=== PATIENT | female | born 1955 | race Caucasian/White ===

== ENCOUNTER 2020-06-19 16:26 | Emergency (ER) | payer BC, MEDICARE ==
[2020-06-19] MEDS ORDERED: Sodium Chloride 0.9% 1,000 ML IV STA (17:12)
[2020-06-19] MEDS ORDERED: Sodium Chloride 0.9% 10 ML Syringe FLUSH PRN (17:12)
[2020-06-19] MEDS ORDERED: Prochlorperazine 10 MG/2 ML SDV IVPUSH ONE (17:13)
[2020-06-19] MEDS ORDERED: Ketorolac 30 MG/ML SDV IVPUSH ONE (17:13)
--- NOTE | 2020-06-19 17:16 | EDM.PDOC ---
ED HPI GENERAL MEDICAL PROBLEM - General Chief Complaint: Abdominal Pain Stated Complaint: STOMACH PAIN Time Seen by Provider: 06/19/20 17:07 Source of Information: Reports: Patient, Family, RN Notes Reviewed History Limitations: Reports: No Limitations - History of Present Illness INITIAL COMMENTS - FREE TEXT/NARRATIVE: 64-year-old female presents emergency department with a complaint of epigastric abdominal pain, she states it started 13 hours ago is constant in nature no shortness of breath no chest pain no diaphoresis, states she has had normal bowel movements denies any fevers does feel nauseated no vomiting no history of abdominal surgeries takes no medications Upper Abdomen Pain Score (Numeric/FACES): 5 - Related Data Allergies Allergy/AdvReac Type Severity Reaction Status Date / Time cefuroxime [From Ceftin] Allergy Hives Verified 06/19/20 16:59 amoxicillin [From Augmentin] AdvReac Vomiting Verified 06/19/20 16:59 clavulanic acid AdvReac Vomiting Verified 06/19/20 16:59 [From Augmentin] levofloxacin [From Levaquin] AdvReac Other Verified 06/19/20 16:59 prednisone AdvReac Headache Verified 06/19/20 17:00 Home Meds: Home Meds Promethazine [Phenergan] 25 mg PO Q6H PRN #10 tab 06/19/20 [Rx] Past Medical History Genitourinary History: Reports: Renal Calculus 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 Social & Family History - Tobacco Use Smoking Status *Q: Current Some Day Smoker Years of Tobacco use: 20 Packs/Tins Daily: 0 - Caffeine Use Caffeine Use: Reports: None - Recreational Drug Use Recreational Drug Use: No ED ROS GENERAL - Review of Systems Review Of Systems: See Below Constitutional: Reports: No Symptoms HEENT: Reports: No Symptoms Respiratory: Reports: No Symptoms Cardiovascular: Reports: No Symptoms GI/Abdominal: Reports: Abdominal Pain, Flatus, Nausea, Vomiting. Denies: Constipation, Diarrhea : Reports: No Symptoms Musculoskeletal: Reports: No Symptoms ED EXAM, GI/ABD - Physical Exam Exam: See Below Exam Limited By: No Limitations General Appearance: Alert, WD/WN, No Apparent Distress Neck: Normal Inspection, Supple, Non-Tender, Full Range of Motion Respiratory/Chest: No Respiratory Distress, Lungs Clear, Normal Breath Sounds, No Accessory Muscle Use, Chest Non-Tender Cardiovascular: Regular Rate, Rhythm, No Murmur GI/Abdominal Exam: Normal Bowel Sounds, Soft, No Organomegaly, No Distention, No Abnormal Bruit, Tender (Minimally tender epigastric region) Back Exam: Normal Inspection, Full Range of Motion. No: CVA Tenderness (R), CVA Tenderness (L) Extremities: Pedal Edema Course - Vital Signs Last Recorded V/S: Last Vital Signs Temp 99.1 F 06/19/20 16:56 Pulse 85 06/19/20 16:56 Resp 16 06/19/20 16:56 BP 168/70 H 06/19/20 16:56 Pulse Ox 98 06/19/20 16:56 - Orders/Labs/Meds Orders: Active Orders 24 hr Category Date Time Status Peripheral IV Care [RC] . DIRECTED Care 06/19/20 17:13 Active Sodium Chloride 0.9% [Normal Saline] 1,000 ml Med 06/19/20 17:12 Active IV .BOLUS Sodium Chloride 0.9% [Saline Flush] Med 06/19/20 17:12 Active 10 ml FLUSH ASDIRECTED PRN Isolation [COMM] Routine Oth 06/19/20 17:25 Ordered Peripheral IV Insertion Adult [OM.PC] Urgent Oth 06/19/20 17:12 Ordered Medication Orders Sodium Chloride (Normal Saline) 1,000 mls @ 999 mls/hr IV .BOLUS STA Stop: 06/19/20 18:12 Last Admin: 06/19/20 17:59 Dose: Not Given Documented by: CLAYTON Sodium Chloride (Saline Flush) 10 ml FLUSH ASDIRECTED PRN PRN Reason: Keep Vein Open Labs: Laboratory Tests 06/19/20 06/19/20 06/19/20 Range/Units 17:27 17:27 17:27 WBC 13.9 H (4.5-11.0) K/uL RBC 3.96 (3.30-5.50) M/uL Hgb 12.4 (12.0-15.0) g/dL Hct 37.5 (36.0-48.0) % MCV 95 (80-98) fL MCH 31 (27-31) pg MCHC 33 (32-36) % Plt Count 266 (150-400) K/uL Neut % (Auto) 71 H (36-66) % Lymph % (Auto) 20 L (24-44) % [place] % (Auto) 7 H (2-6) % Eos % (Auto) 2 (2-4) % Baso % (Auto) 0 (0-1) % Sodium 136 L (140-148) mmol/L Potassium 3.8 (3.6-5.2) mmol/L Chloride 101 (100-108) mmol/L Carbon Dioxide 24 (21-32) mmol/L Anion Gap 14.8 H (5.0-14.0) mmol/L BUN 6 L (7-18) mg/dL Creatinine 0.7 (0.6-1.0) mg/dL Est Cr Clr Drug Dosing 77.92 mL/min Estimated GFR (MDRD) > 60 (>60) Glucose 120 H (74-106) mg/dL Lactic Acid 0.9 (0.4-2.0) mmol/L Calcium 9.0 (8.5-10.1) mg/dL Total Bilirubin 0.9 (0.2-1.0) mg/dL AST 19 (15-37) U/L ALT 29 (12-78) U/L Alkaline Phosphatase 75 (46-116) U/L Troponin I < 0.017 (0.000-0.056) ng/mL Total Protein 7.9 (6.4-8.2) g/dL Albumin 3.9 (3.4-5.0) g/dL Globulin 4.0 H (2.3-3.5) g/dL Albumin/Globulin Ratio 1.0 L (1.2-2.2) Urine Color (YELLOW) Urine Appearance (CLEAR) Urine pH (5.0-8.0) Ur Specific [place] (1.008-1.030) Urine Protein (NEGATIVE) mg/dL Urine Glucose (UA) (NEGATIVE) mg/dL Urine Ketones (NEGATIVE) mg/dL Urine Occult Blood (NEGATIVE) Urine Nitrite (NEGATIVE) Urine Bilirubin (NEGATIVE) Urine Urobilinogen (0.2-1.0) EU/dL Ur Leukocyte Esterase (NEGATIVE) Urine RBC (0-5) Urine WBC (0-5) Ur Epithelial Cells Amorphous Sediment Urine Bacteria Urine Mucus 06/19/20 Range/Units 17:35 WBC (4.5-11.0) K/uL RBC (3.30-5.50) M/uL Hgb (12.0-15.0) g/dL Hct (36.0-48.0) % MCV (80-98) fL MCH (27-31) pg MCHC (32-36) % Plt Count (150-400) K/uL Neut % (Auto) (36-66) % Lymph % (Auto) (24-44) % [place] % (Auto) (2-6) % Eos % (Auto) (2-4) % Baso % (Auto) (0-1) % Sodium (140-148) mmol/L Potassium (3.6-5.2) mmol/L Chloride (100-108) mmol/L Carbon Dioxide (21-32) mmol/L Anion Gap (5.0-14.0) mmol/L BUN (7-18) mg/dL Creatinine (0.6-1.0) mg/dL Est Cr Clr Drug Dosing mL/min Estimated GFR (MDRD) (>60) Glucose (74-106) mg/dL Lactic Acid (0.4-2.0) mmol/L Calcium (8.5-10.1) mg/dL Total Bilirubin (0.2-1.0) mg/dL AST (15-37) U/L ALT (12-78) U/L Alkaline Phosphatase (46-116) U/L Troponin I (0.000-0.056) ng/mL Total Protein (6.4-8.2) g/dL Albumin (3.4-5.0) g/dL Globulin (2.3-3.5) g/dL Albumin/Globulin Ratio (1.2-2.2) Urine Color Yellow (YELLOW) Urine Appearance Slightly cloudy A (CLEAR) Urine pH 6.5 (5.0-8.0) Ur Specific [place] 1.020 (1.008-1.030) Urine Protein Negative (NEGATIVE) mg/dL Urine Glucose (UA) Negative (NEGATIVE) mg/dL Urine Ketones Negative (NEGATIVE) mg/dL Urine Occult Blood Trace-lysed H (NEGATIVE) Urine Nitrite Negative (NEGATIVE) Urine Bilirubin Negative (NEGATIVE) Urine Urobilinogen 0.2 (0.2-1.0) EU/dL Ur Leukocyte Esterase Negative (NEGATIVE) Urine RBC 0-5 (0-5) Urine WBC 0-5 (0-5) Ur Epithelial Cells Few Amorphous Sediment Not seen Urine Bacteria Many Urine Mucus Not seen Meds: Medications Generic Name Dose Route Start Last Admin Trade Name Freq PRN Reason Stop Dose Admin Sodium Chloride 1,000 mls @ 999 mls/hr 06/19/20 17:12 06/19/20 17:59 Normal Saline IV 06/19/20 18:12 Not Given .BOLUS STA Sodium Chloride 10 ml 06/19/20 17:12 Saline Flush FLUSH ASDIRECTED PRN Keep Vein Open Discontinued Medications Generic Name Dose Route Start Last Admin Trade Name Freq PRN Reason Stop Dose Admin Ketorolac Tromethamine 30 mg 06/19/20 17:13 06/19/20 17:59 Toradol IVPUSH 06/19/20 17:14 Not Given ONETIME ONE Prochlorperazine Edisylate 5 mg 06/19/20 17:13 06/19/20 17:59 Compazine IVPUSH 06/19/20 17:14 Not Given ONETIME ONE Promethazine HCl 12.5 mg 06/19/20 17:59 Phenergan IM 06/19/20 18:00 ONETIME ONE Departure - Departure Time of Disposition: 18:03 Disposition: Home, Self-Care 01 Condition: Fair Clinical Impression: Abdominal pain Qualifiers: Abdominal location: epigastric Qualified Code(s): R10.13 - Epigastric pain - Discharge Information Prescriptions: Promethazine [Phenergan] 25 mg PO Q6H PRN #10 tab PRN Reason: Nausea Instructions: Abdominal Pain, Adult, [id number] Referrals: PCP,None [Primary Care Provider] - Forms: ED Department Discharge Additional Instructions: Try the Phenergan as needed for nausea and vomiting symptoms please followup with your primary care provider in 3-5 days if not better, please call return to the emergency department with worsening of symptoms., Your medications have been faxed to [facility] pharmacy Sepsis Event Note (ED) - Evaluation Sepsis Screening Result: No Definite Risk - Focused Exam Vital Signs: Vital Signs Temp Pulse Resp BP Pulse Ox 06/19/20 16:56 99.1 F 85 16 168/70 H 98 06/19/20 16:55 99.1 F 85 16 168/70 H 98 - My Orders Last 24 Hours: My Active Orders 06/19/20 17:12 Sodium Chloride 0.9% [Normal Saline] 1,000 ml IV .BOLUS Sodium Chloride 0.9% [Saline Flush] 10 ml FLUSH ASDIRECTED PRN Peripheral IV Insertion Adult [OM.PC] Urgent 06/19/20 17:13 Peripheral IV Care [RC] . DIRECTED 06/19/20 17:25 Isolation [COMM] Routine - Assessment/Plan Last 24 Hours: My Active Orders 06/19/20 17:12 Sodium Chloride 0.9% [Normal Saline] 1,000 ml IV .BOLUS Sodium Chloride 0.9% [Saline Flush] 10 ml FLUSH ASDIRECTED PRN Peripheral IV Insertion Adult [OM.PC] Urgent 06/19/20 17:13 Peripheral IV Care [RC] . DIRECTED 06/19/20 17:25 Isolation [COMM] Routine Plan: Assessment Acuity = acute Site and laterality = epigastric abdominal pain Etiology = unknown Manifestations = nausea Location of injury = Home Lab values = CBC, CMP unremarkable except for WBC elevated 13.9 consistent leukocytosis, troponin was negative lactic acid within normal limits Plan I offered her further evaluation work-up which she declined she would just like to try some antinausea medication therefore prescription written for promethazine Phenergan 25 mg p.o. every 6 hours as needed, follow-up with primary care or return to emergency department worsening of symptoms This note was dictated using [employer] voice recognition software please call with any questions on syntax or grammar.
[2020-06-19] MEDS ORDERED: Promethazine 25 MG/ML SDV IM ONE (17:59)
[2020-06-19] MEDS ORDERED: Ketorolac 60 MG/2 ML SDV IM ONE (18:02)
== END 2020-06-19 18:21 | disposition home or self-care (01) ==
LOC: JP.ED 16:26
DX: R10.13 Epigastric pain (principal); Z88.1 Allergy status to other antibiotic agents; Z88.8 Allergy status to other drugs, medicaments and biological substances; F17.210 Nicotine dependence, cigarettes, uncomplicated
CPT/HCPCS: 36415; 80053; 81001; 83605; 84484; 85025; 96372; 99284; J1885; J2550

== ENCOUNTER 2020-06-21 05:01 | Inpatient (IN) | payer MEDICARE, BC, OTHER ==
--- NOTE | 2020-06-21 05:39 | EDM.PDOC ---
ED HPI GENERAL MEDICAL PROBLEM - General Chief Complaint: Abdominal Pain Stated Complaint: ABD PAIN Time Seen by Provider: 06/21/20 05:20 Source of Information: Reports: Patient, Family History Limitations: Reports: No Limitations - History of Present Illness INITIAL COMMENTS - FREE TEXT/NARRATIVE: 64-year-old female with worsening abdominal pain over the last 2 days, she is no w developed right lower quadrant pain with rebound and guarding. She could feel pain on the way into the hospital with hitting bumps in the road while traveling. No appetite, one emesis 2 days ago. Now running a low-grade fever. No urinary symptoms. Onset: Gradual Duration: Day(s): (3 days of pain) Location: Reports: Abdomen (Now localized to the right lower quadrant) Associated Symptoms: Reports: Fever/Chills, Loss of Appetite, Malaise. Denies: Chest Pain, Cough, Shortness of Breath, Weakness Right Lower Abdomen Pain Score (Numeric/FACES): 7 - Related Data Allergies Allergy/AdvReac Type Severity Reaction Status Date / Time cefuroxime [From Ceftin] Allergy Hives Verified 06/21/20 05:16 amoxicillin [From Augmentin] AdvReac Vomiting Verified 06/21/20 05:16 clavulanic acid AdvReac Vomiting Verified 06/21/20 05:16 [From Augmentin] levofloxacin [From Levaquin] AdvReac Other Verified 06/21/20 05:16 prednisone AdvReac Headache Verified 06/21/20 05:16 Home Meds: Home Meds Promethazine [Phenergan] 25 mg PO Q6H PRN #10 tab 06/19/20 [Rx] Past Medical History Genitourinary History: Reports: Renal Calculus 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 Social & Family History - Tobacco Use Smoking Status *Q: Current Every Day Smoker Years of Tobacco use: 20 Packs/Tins Daily: 0.5 - Caffeine Use Caffeine Use: Reports: Coffee - Recreational Drug Use Recreational Drug Use: No ED ROS GENERAL - Review of Systems Review Of Systems: See Below Constitutional: Reports: Fever, Chills, Malaise, Decreased Appetite HEENT: Reports: No Symptoms Respiratory: Denies: Shortness of Breath Cardiovascular: Denies: Chest Pain GI/Abdominal: Reports: Abdominal Pain, Anorexia, Vomiting (One episode 2 days ago) : Reports: No Symptoms Skin: Reports: No Symptoms Neurological: Reports: No Symptoms Psychiatric: Reports: No Symptoms ED EXAM, GI/ABD - Physical Exam Exam: See Below Exam Limited By: No Limitations General Appearance: Alert, No Apparent Distress (Fairly uncomfortable but no distress) Eyes: Bilateral: Normal Appearance (No jaundice) Head: Atraumatic Respiratory/Chest: No Respiratory Distress, Lungs Clear Cardiovascular: Regular Rate, Rhythm GI/Abdominal Exam: Soft, Tender (Tender in the right abdomen, especially the right lower quadrant with rebound and guarding) Extremities: Normal Inspection Neurological: Alert, Oriented Course - Vital Signs Last Recorded V/S: Last Vital Signs Temp 98.3 F 06/22/20 07:12 Pulse 54 L 06/22/20 07:12 Resp 16 06/22/20 07:12 BP 102/59 L 06/22/20 07:12 Pulse Ox 93 L 06/22/20 07:25 - Orders/Labs/Meds Orders: Active Orders 24 hr Category Date Time Status CULTURE ANAEROBIC [RM] Routine Lab 06/21/20 09:48 Results CULTURE WOUND + SMEAR [RM] Routine Lab 06/21/20 09:48 Results Medication Orders Bisacodyl (Dulcolax) 10 mg PO BID [facility] Last Admin: 06/22/20 10:01 Dose: 10 mg Documented by: EDGAR Ropivacaine 54 ml/Dexamethasone 8 mg/Epinephrine HCl 0.4 mg/ Sodium Chloride 23.6 ml 0 ml NERVRT ASDIRECTED [facility] Cyclobenzaprine HCl (Flexeril) 10 mg PO Q8H PRN PRN Reason: Muscle Spasm Docusate Sodium (Colace) 100 mg PO BID [facility] Last Admin: 06/22/20 10:01 Dose: 100 mg Documented by: EDGAR Hydromorphone HCl (Dilaudid Naphthalene Operator Helper 15 Mg In Ns 30 Ml) 0 mg IV ASDIRECTED PRN; Protocol 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 Last Admin: 06/22/20 09:54 Dose: 15 mg Documented by: Admin: 06/21/20 07:32 Dose: 15 mg Documented by: CLAYTON Hydroxyzine HCl (Vistaril) 100 mg IM Q4H PRN PRN Reason: pain Ampicillin Sodium/Sulbactam (Sodium 3 gm/ Sodium Chloride) 100 mls @ 200 mls/hr IV Q6H [facility] Last Admin: 06/22/20 06:20 Dose: 200 mls/hr Documented by: Admin: 06/21/20 23:48 Dose: 200 mls/hr Documented by: Admin: 06/21/20 17:31 Dose: 200 mls/hr Documented by: Admin: 06/21/20 12:26 Dose: 200 mls/hr Documented by: CARLOS Aztreonam 1 gm/ Sodium (Chloride) 50 mls @ 100 mls/hr IV Q8H [facility] Last Admin: 06/22/20 05:23 Dose: 100 mls/hr Documented by: Admin: 06/21/20 21:00 Dose: 100 mls/hr Documented by: Admin: 06/21/20 13:37 Dose: 100 mls/hr Documented by: JUAN F Dextrose/Lactated Ringer's (Dextrose 5%-Lactated Ringers) 1,000 mls @ 125 mls/hr IV ASDIRECTED [facility] Stop: 06/22/20 17:55 Dextrose/Lactated Ringer's (Dextrose 5%-Lactated Ringers) 1,000 mls @ 100 mls/hr IV ASDIRECTED [facility] Naloxone HCl (Narcan) 0.1 mg IV ASDIRECTED PRN PRN Reason: decreased respiratory rate Ondansetron HCl (Zofran) 4 mg IVPUSH Q4H PRN PRN Reason: Nausea/Vomiting Pantoprazole Sodium (Protonix Iv) 40 mg IVPUSH Q24H [facility] Last Admin: 06/21/20 13:33 Dose: 40 mg Documented by: JUAN F Labs: Laboratory Tests 06/21/20 06/21/20 06/21/20 Range/Units 05:50 05:50 06:34 WBC 15.6 H (4.5-11.0) K/uL RBC 4.04 (3.30-5.50) M/uL Hgb 12.5 (12.0-15.0) g/dL Hct 38.3 (36.0-48.0) % MCV 95 (80-98) fL MCH 31 (27-31) pg MCHC 33 (32-36) % Plt Count 245 (150-400) K/uL Neut % (Auto) 83 H (36-66) % Lymph % (Auto) 9 L (24-44) % [place] % (Auto) 7 H (2-6) % Eos % (Auto) 1 L (2-4) % Baso % (Auto) 0 (0-1) % Sodium 135 L (140-148) mmol/L Potassium 3.8 (3.6-5.2) mmol/L Chloride 101 (100-108) mmol/L Carbon Dioxide 23 (21-32) mmol/L Anion Gap 14.8 H (5.0-14.0) mmol/L BUN 7 (7-18) mg/dL Creatinine 0.8 (0.6-1.0) mg/dL Est Cr Clr Drug Dosing 68.18 mL/min Estimated GFR (MDRD) > 60 (>60) Glucose 145 H (74-106) mg/dL Calcium 9.0 (8.5-10.1) mg/dL SARS Virus RNA (PCR) Negative (NEGATIVE) Meds: Medications Generic Name Dose Route Start Last Admin Trade Name Freq PRN Reason Stop Dose Admin Bisacodyl 10 mg 06/22/20 09:00 06/22/20 10:01 Dulcolax PO 10 mg BID TAWANDA Administration Ropivacaine 54 ml/ 0 ml 06/23/20 07:30 Dexamethasone 8 mg/ NERVRT Epinephrine HCl 0.4 mg/ Sodium ASDIRECTED TAWANDA Chloride 23.6 ml Cyclobenzaprine HCl 10 mg 06/21/20 11:23 Flexeril PO Q8H PRN Muscle Spasm Docusate Sodium 100 mg 06/22/20 09:00 06/22/20 10:01 Colace PO 100 mg BID [facility]WAN[facility] Administration Hydromorphone HCl 0 mg 06/21/20 07:10 06/22/20 09:54 Dilaudid Naphthalene Operator Helper 15 Mg In Ns 30 Ml IV 15 mg ASDIRECTED PRN Administration DIETARY DIRECTOR PAIN CONTROL Protocol Hydroxyzine HCl 100 mg 06/21/20 12:00 Vistaril IM Q4H PRN pain Ampicillin Sodium/Sulbactam 100 mls @ 200 mls/hr 06/21/20 12:30 06/22/20 06:20 Sodium 3 gm/ Sodium Chloride IV 200 mls/hr Q6H TAWANDA Administration Aztreonam 1 gm/ Sodium 50 mls @ 100 mls/hr 06/21/20 14:00 06/22/20 05:23 Chloride IV 100 mls/hr Q8H [facility]WANDA Administration Dextrose/Lactated Ringer's 1,000 mls @ 125 mls/hr 06/22/20 09:00 Dextrose 5%-Lactated Ringers IV 06/22/20 17:55 ASDIRECTED TAWANDA Dextrose/Lactated Ringer's 1,000 mls @ 100 mls/hr 06/22/20 18:00 Dextrose 5%-Lactated Ringers IV ASDIRECTED [facility]WANDA Naloxone HCl 0.1 mg 06/21/20 08:00 Narcan IV ASDIRECTED PRN decreased respiratory rate Ondansetron HCl 4 mg 06/21/20 12:00 Zofran IVPUSH Q4H PRN Nausea/Vomiting Pantoprazole Sodium 40 mg 06/21/20 14:00 06/21/20 13:33 Protonix Iv IVPUSH 40 mg Q24H TAWANDA Administration Discontinued Medications Generic Name Dose Route Start Last Admin Trade Name Freq PRN Reason Stop Dose Admin Bupivacaine HCl/Epinephrine Bitart Confirm 06/21/20 07:13 06/21/20 09:55 Marcaine 0.5%/Epinephrine 1:200,000 Administered 06/21/20 07:14 1 ml Dose Administration 50 ml .ROUTE .STK-MED ONE Ropivacaine 54 ml/ 0 ml 06/21/20 09:00 06/21/20 08:55 Dexamethasone 8 mg/ NERVRT 80 syringe Epinephrine HCl 0.4 mg/ Sodium ASDIRECTED TAWANDA Administration Chloride 23.6 ml Dexamethasone Confirm 06/21/20 08:12 Dexamethasone Administered 06/21/20 08:13 Dose 4 mg .ROUTE .STK-MED ONE Fentanyl Confirm 06/21/20 08:11 Sublimaze Administered 06/21/20 08:12 Dose 250 mcg .ROUTE .STK-MED ONE Fentanyl Confirm 06/21/20 09:05 Sublimaze Administered 06/21/20 09:06 Dose 250 mcg .ROUTE .STK-MED ONE Glycopyrrolate Confirm 06/21/20 08:12 Robinul Administered 06/21/20 08:13 Dose 1 mg .ROUTE .STK-MED ONE Hydromorphone HCl 0.5 mg 06/21/20 05:41 06/21/20 05:50 Dilaudid IVPUSH 06/21/20 05:42 0.5 mg ONETIME ONE Administration Hydroxyzine HCl 100 mg 06/21/20 10:31 06/21/20 10:37 Vistaril IM 06/21/20 10:32 100 mg ONETIME ONE Administration Sodium Chloride 1,000 mls @ 500 mls/hr 06/21/20 05:45 06/21/20 05:50 Normal Saline IV 500 mls/hr ASDIRECTED TAWANDA Administration Ampicillin Sodium/Sulbactam 50 mls @ 100 mls/hr 06/21/20 06:19 06/21/20 06:30 Sodium 1.5 gm/ Sodium Chloride IV 06/21/20 06:48 100 mls/hr ONETIME ONE Administration Aztreonam 1 gm/ Sodium 50 mls @ 100 mls/hr 06/21/20 06:19 06/21/20 07:16 Chloride IV 06/21/20 06:48 100 mls/hr ONETIME ONE Administration Ketamine HCl 50 mg/ Sodium 50 mls @ 18.3 mls/hr 06/21/20 09:00 Chloride IV ASDIRECTED TAWANDA 5 MCG/KG/MIN Lactated Ringer's 1,000 mls @ 333 mls/hr 06/21/20 07:30 06/21/20 07:40 Ringers, Lactated IV 06/21/20 10:30 333 mls/hr ONETIME ONE Administration Dextrose/Lactated Ringer's 1,000 mls @ 150 mls/hr 06/21/20 10:30 Dextrose 5%-Lactated Ringers IV ASDIRECTED TAWANDA Dextrose/Lactated Ringer's 1,000 mls @ 175 mls/hr 06/21/20 11:30 06/22/20 07:20 Dextrose 5%-Lactated Ringers IV 175 mls/hr ASDIRECTED TAWANDA Administration Ketamine HCl 30 mg 06/21/20 09:00 Ketalar IV ASDIRECTED TAWANDA Meropenem Confirm 06/21/20 09:26 06/21/20 09:45 Merrem Administered 06/21/20 09:27 500 mg Dose Administration 500 mg .ROUTE .STK-MED ONE Neostigmine Methylsulfate Confirm 06/21/20 08:12 Neostigmine Administered 06/21/20 08:13 Dose 5 mg .ROUTE .STK-MED ONE Ondansetron HCl Confirm 06/21/20 08:12 Zofran Administered 06/21/20 08:13 Dose 4 mg .ROUTE .STK-MED ONE Propofol Confirm 06/21/20 08:12 Diprivan 20 Ml Administered 06/21/20 08:13 Dose 200 mg .ROUTE .STK-MED ONE Rocuronium [place] Confirm 06/21/20 08:12 Zemuron Administered 06/21/20 08:13 Dose 50 mg .ROUTE .STK-MED ONE Succinylcholine Chloride Confirm 06/21/20 08:12 Quelicin Administered 06/21/20 08:13 Dose 200 mg .ROUTE .STK-MED ONE - Re-Assessments/Exams Free Text/Narrative Re-Assessment/Exam: 06/21/20 05:43 An IV was started and the patient was given 0.5 mg of IV Dilaudid, a CBC and BMP was obtained and the patient will be scanned for presumptive appendicitis. 06/21/20 06:38 White count is now over 15,000, the rest of her chemistry panel is generally normal. CT scan revealed an obvious appendicitis with what appears to be an abscess formation, formal reading is pending. A surgical consultation was obtained from Dr. Mack and the patient was given 1 g of Azactam and 1.5 g of Unasyn IV. COVID-19 test was obtained prior to surgery which is pending. 06/21/20 06:43 Impression: Inflammatory phlegmon noted within the right lower quadrant suggesting a ruptured appendix within this location Departure - Departure Time of Disposition: 08:49 Disposition: Admitted As Inpatient 65 Clinical Impression: Appendicitis, acute, with generalized peritonitis Qualifiers: Appendicitis abscess presence: with abscess - Discharge Information Sepsis Event Note (ED) - Evaluation Sepsis Screening Result: Possible Sepsis Risk
[2020-06-21] MEDS ORDERED: HYDROmorphone 0.5 MG/0.5 ML Syringe IVPUSH ONE (05:41)
[2020-06-21] MEDS ORDERED: Sodium Chloride 0.9% 1,000 ML IV SCH (05:45)
[2020-06-21] MEDS ORDERED: Ampicillin/Sulbactam Na 1.5 GM in Sodium Chloride 0.9% 50 ML IV ONE (06:19)
--- NOTE | 2020-06-21 06:41 | CRLCT ---
Indication: Lower abdominal pain Technique: A CT volumetric acquisition was performed of the abdomen and pelvis without IV contrast. Comparison: None available Findings: There is parenchymal scarring within the inferior lingula and right middle lobe. There is no evidence of pleural or pericardial fluid. The unenhanced liver, spleen and pancreas appear normal. The gallbladder and bile ducts are normal in size. The adrenal glands have normal morphology. Small nonobstructing stones are noted within the kidneys measuring 1-6 mm in size. There is no evidence of ureteral calculus or hydronephrosis. Atherosclerotic changes are evident within the aorta but no evidence of aneurysm or vascular dissection. There is localized inflammatory phlegmon formation within the right lower quadrant with stranding within the fat. There are few mildly enlarged lymph nodes within this region. I cannot discretely visualize the appendix which I suspect has ruptured and there is development of a phlegmon obscuring its borders. There is no evidence of obstruction within the small intestine. There are multiple diverticula within the sigmoid region but no evidence of sigmoid diverticulitis. The uterus and ovaries appear normal as does the partially filled urinary bladder. There is trace amount of free fluid in the dependent pelvic cul de sac. Impression: Inflammatory phlegmon noted within the right lower quadrant suggesting a ruptured appendix within this location. Dictated by Homer Hernandez MD @ 06/21/2020 6:40:02 AM Please note that all CT scans at this facility use dose modulation, iterative reconstruction, and/or weight-based dosing when appropriate to reduce radiation dose to as low as reasonably achievable. Dictated by: Homer Hernandez MD @ 06/21/2020 06:40:11 (Electronically Signed)
[2020-06-21] MEDS ORDERED: Bupivacaine 0.5%/EPINEPHrine 1:200,000 50 ML MDV ONE (07:13)
[2020-06-21] MEDS ORDERED: Lactated Ringers 1,000 ML IV ONE (07:30)
[2020-06-21] MEDS: HYDROmorphone/Normal Saline 15 MG/30 ML PCA IV PRN (07:32)
[2020-06-21] MEDS ORDERED: Naloxone 0.4 MG/ML SDV IV PRN (08:00)
[2020-06-21] MEDS ORDERED: fentaNYL 250 MCG/5 ML SDV ONE ×2 (08:11→09:05)
[2020-06-21] MEDS ORDERED: Propofol 200 MG/20 ML SDV ONE (08:12)
[2020-06-21] MEDS ORDERED: Neostigmine Methylsulfate 1 MG/ML 5 ML Syringe ONE (08:12)
[2020-06-21] MEDS ORDERED: Dexamethasone 4 MG/ML SDV ONE (08:12)
[2020-06-21] MEDS ORDERED: Succinylcholine 200 MG/10 ML MDV ONE (08:12)
[2020-06-21] MEDS ORDERED: Ondansetron 4 MG/2 ML SDV ONE (08:12)
[2020-06-21] MEDS ORDERED: Glycopyrrolate 0.2 MG/ML 5 ML MDV ONE (08:12)
[2020-06-21] MEDS ORDERED: Rocuronium 50 MG/5 ML Vial ONE (08:12)
[2020-06-21] MEDS ORDERED: Ketamine 50 MG in Sodium Chloride 0.9% 49.5 ML IV SCH (09:00)
[2020-06-21] MEDS ORDERED: Ketamine 500 MG/5 ML MDV IV SCH (09:00)
[2020-06-21] MEDS ORDERED: Meropenem 500 MG SDV ONE (09:26)
[2020-06-21] MEDS ORDERED: Dextrose 5%-Lactated Ringers 1,000 ML IV SCH (10:30)
[2020-06-21] MEDS ORDERED: hydrOXYzine HCL 100 MG/2 ML SDV IM ONE (10:31)
[2020-06-21] MEDS ORDERED: hydrOXYzine HCL 100 MG/2 ML SDV IM PRN (12:00)
[2020-06-21] MEDS ORDERED: Ondansetron 4 MG/2 ML SDV IVPUSH PRN (12:00)
[2020-06-21] MEDS: Ampicillin/Sulbactam Na 3 GM in Sodium Chloride 0.9% 100 ML IV SCH ×3 (12:26→23:48)
[2020-06-21] MEDS: Pantoprazole 40 MG Vial IVPUSH SCH (13:33)
[2020-06-21] MEDS: Dextrose 5%-Lactated Ringers 1,000 ML IV SCH ×2 (17:18→23:55)
[2020-06-22] MEDS: Ampicillin/Sulbactam Na 3 GM in Sodium Chloride 0.9% 100 ML IV SCH ×2 (06:20→13:20)
[2020-06-22] MEDS: Dextrose 5%-Lactated Ringers 1,000 ML IV SCH (07:20)
[2020-06-22] MEDS ORDERED: Dextrose 5%-Lactated Ringers 1,000 ML IV SCH (09:00)
[2020-06-22] MEDS: HYDROmorphone/Normal Saline 15 MG/30 ML PCA IV PRN (09:54)
[2020-06-22] MEDS: Docusate Sodium 100 MG Cap PO SCH ×2 (10:01→20:19)
[2020-06-22] MEDS: Bisacodyl 5 MG Tab PO SCH ×2 (10:01→20:19)
[2020-06-22] MEDS ORDERED: Sodium Chloride 0.65% Nasal Spray 45 ML Bottle NAS PRN (13:55)
[2020-06-22] MEDS: Pantoprazole 40 MG Vial IVPUSH SCH (14:43)
--- NOTE | 2020-06-22 16:31 | PN ---
DATE OF SERVICE: 06/22/2020 The patient is 1 day status post open appendectomy. This excision included appendix, base of the cecum, and the abscess cavity all coming out in more or less the same unit. Clinically, she is a little bit slow to get up and moving. We will discontinue the Mccullough catheter and back down on the IV rate. Continue present antibiotics consisting of Unasyn and Azactam. The Gram stain on the cultures showed gram-positive cocci and gram-negative rods. She is to undergo a delayed primary closure of the abdominal incision tomorrow along with TAP block at that time. We will begin some bowel stimulation and try to maximize activity and work with pulmonary toilet. Kvng Mack MD /[id number]
[2020-06-22] MEDS ORDERED: Vancomycin 2 GM in Sodium Chloride 0.9% 500 ML IV ONE (17:00)
--- NOTE | 2020-06-22 17:51 | CRLCR ---
INDICATION: Fever, postop COMPARISON: None TECHNIQUE: PA and lateral views of the chest FINDINGS: There are patchy bilateral airspace opacities, concerning for infiltrates. There is no pleural effusion or pneumothorax. The cardiomediastinal silhouette is normal. The osseous structures are unremarkable. IMPRESSION: Patchy bilateral airspace opacities, concerning for infiltrates. Correlate clinically. Dictated by Arden Osorio MD @ Jun 22 2020 5:49PM Signed by Dr. Arden Osorio @ Jun 22 2020 5:50PM
[2020-06-22] MEDS: Acetaminophen 325 MG Tab PO PRN (18:50)
[2020-06-22] MEDS: Meropenem 1 GM in Sodium Chloride 0.9% 100 ML IV SCH (20:17)
[2020-06-23] MEDS: Dextrose 5%-Lactated Ringers 1,000 ML IV SCH ×2 (01:33→14:07)
[2020-06-23] MEDS: Cyclobenzaprine 10 MG Tab PO PRN ×3 (03:14→21:20)
[2020-06-23] MEDS: Acetaminophen 325 MG Tab PO PRN ×2 (03:14→18:26)
[2020-06-23] MEDS ORDERED: Iopamidol 612 MG/ML 50 ML SDV ONE (03:52)
[2020-06-23] MEDS ORDERED: Iopamidol 612 MG/ML 50 ML SDV PO ONE (03:54)
[2020-06-23] MEDS: Meropenem 1 GM in Sodium Chloride 0.9% 100 ML IV SCH ×3 (04:23→21:15)
[2020-06-23] MEDS ORDERED: Sodium Chloride 0.9% 10 ML Syringe FLUSH PRN (04:50)
[2020-06-23] MEDS ORDERED: Iopamidol 612 MG/ML 150 ML Bottle IV SCH (05:00)
[2020-06-23] MEDS: Vancomycin 1.6 GM in Sodium Chloride 0.9% 250 ML IV SCH ×2 (05:46→18:20)
--- NOTE | 2020-06-23 07:31 | CRLCT ---
INDICATION: Recent surgery and fever. TECHNIQUE: CT scan of the abdomen and pelvis. Comparison 06/21/2020. 150 cc of nonionic intravenous contrast. FINDINGS. Oral contrast was administered. Postsurgical changes: There is a surgical wound in the right lower quadrant. There is another smaller surgical wound in the left abdomen. A surgical drain is present in the right abdomen in the right lower quadrant. A ileal colic anastomosis is suggested in the right lower quadrant. Tiny bubbles of extraluminal air in the lower abdomen likely from the recent surgery. These are present and image 122 in the left lower quadrant and image 127 in the right lower quadrant. Liver, spleen, adrenal glands, pancreas: Unremarkable. Kidneys and bladder: Small nonobstructing calcifications in the left kidney and right kidney. No hydronephrosis. Small amount of air in the urinary bladder could be related to catheterization. GI tract: There is enteric contrast material in small bowel loops in the left and mid abdomen and more distal moderately distended fluid-filled loops. The terminal ileum segment near the anastomosis is decompressed. Miscellaneous: No drainable fluid collection in the abdomen or pelvis. Pelvis: Small nonspecific amount of free fluid. Uterus is normal in size. Lymph nodes: No pathologic enlargement. Aorta: Plaque formation normal caliber. Lung bases: Atelectasis. Bilateral breast implants. There are new areas of focal patchy subpleural alveolar opacity in the right middle lobe in the lingula. Skeletal: No significant skeletal abnormality. IMPRESSION: 1. Recent ileocolic anastomosis. Drain placement. 2. No drainable fluid collection or abscess. 3. Oral contrast material within bowel loops and some caliber transition to the terminal ileum. Suggest follow-up imaging to evaluate passage of contrast to the anastomosis. 4. Developing patchy alveolar opacities in the anterior lung bases. In the setting of fever infections such as pneumonia could be considered. Correlate with any exposures or risk factors for COVID-19 pneumonia. Please note that all CT scans at this facility use dose modulation, iterative reconstruction, and/or weight-based dosing when appropriate to reduce radiation dose to as low as reasonably achievable. Dictated by Tavo Shaw MD @ Jun 23 2020 7:20AM Signed by Dr. Tavo Shaw @ Jun 23 2020 7:30AM
[2020-06-23] MEDS: Bisacodyl 5 MG Tab PO SCH ×2 (08:17→21:16)
[2020-06-23] MEDS: Docusate Sodium 100 MG Cap PO SCH ×2 (08:17→21:16)
[2020-06-23] MEDS: Pantoprazole 40 MG Vial IVPUSH SCH (15:15)
[2020-06-23] MEDS: HYDROmorphone/Normal Saline 15 MG/30 ML PCA IV PRN (18:25)
--- NOTE | 2020-06-23 18:54 | CRLCR ---
HISTORY: Gastric emptying followup from CT done this morning. COMPARISON: CT 06/23/2020. FINDINGS: Two views of the abdomen supine. Moderately distended segments of small bowel and colon. This appearance is similar to CT. Contrast is noted in the left colon. Contrast in the bladder. Surgical drain in the right abdomen. Dictated by Alejandra Guzman MD @ Jun 23 2020 6:50PM Signed by Dr. Alejandra Guzman @ Jun 23 2020 6:53PM
[2020-06-24] MEDS: Dextrose 5%-Lactated Ringers 1,000 ML IV SCH (02:17)
[2020-06-24] MEDS: Meropenem 1 GM in Sodium Chloride 0.9% 100 ML IV SCH ×3 (03:58→19:53)
[2020-06-24] MEDS: Vancomycin 1.6 GM in Sodium Chloride 0.9% 250 ML IV SCH ×2 (06:22→18:04)
[2020-06-24] MEDS ORDERED: Lidocaine 1% with EPINEPHrine 1:100,000 50 ML MDV ONE (07:42)
[2020-06-24] MEDS ORDERED: Bupivacaine 0.5% 50 ML MDV ONE (07:42)
[2020-06-24] MEDS ORDERED: Meropenem 500 MG SDV ONE (07:42)
[2020-06-24] MEDS ORDERED: fentaNYL 100 MCG/2 ML SDV ONE (08:29)
[2020-06-24] MEDS ORDERED: Propofol 200 MG/20 ML SDV ONE ×2 (08:29→09:03)
[2020-06-24] MEDS ORDERED: Albuterol/Ipratropium 3.0-0.5 MG/3 ML Neb Soln NEB PRN (09:02)
[2020-06-24] MEDS ORDERED: oxyCODONE 5 MG Tab PO PRN (10:24)
[2020-06-24] MEDS ORDERED: fentaNYL 100 MCG/2 ML SDV IVPUSH PRN (10:24)
[2020-06-24] MEDS: Acetaminophen 325 MG Tab PO PRN ×3 (11:05→21:14)
[2020-06-24] MEDS: Docusate Sodium 100 MG Cap PO SCH ×2 (11:07→21:10)
[2020-06-24] MEDS: Bisacodyl 5 MG Tab PO SCH ×2 (11:07→21:10)
[2020-06-24] MEDS: Pantoprazole 40 MG Vial IVPUSH SCH (13:50)
[2020-06-24] MEDS: Cyclobenzaprine 10 MG Tab PO PRN (15:31)
--- NOTE | 2020-06-24 16:28 | CONS ---
DATE OF SERVICE: 06/24/2020 REFERRING PHYSICIAN: Kvng Mack MD CONSULTING PHYSICIAN: Tommie Waggoner MD REASON FOR CONSULTATION: Evaluation after open appendectomy, partial cecectomy. SUMMARY OF HOSPITAL COURSE: A pleasant 64-year-old female who underwent open appendectomy and partial colectomy on 06/21/2020. She underwent a delayed primary closure on 06/23/2020, doing well, passing gas. The pain is well controlled, 1 to 2/10. No nausea, vomiting, shortness of breath, or chest pain. PAST MEDICAL HISTORY: History of kidney stones, breast reconstruction, bilateral due to mastectomy, active smoker. Please see review of systems for further details. REVIEW OF SYSTEMS: GENERAL: The patient is resting comfortably. HEENT: No symptoms. RESPIRATORY: Active smoker. CARDIOVASCULAR: No chest pain. No previous myocardial infarction. GENITOURINARY: History of renal calculi. SKIN: No wound concerns. NEUROLOGICAL: No symptoms. PSYCHIATRIC: No symptoms. Remainder of review of systems was reviewed and is negative. SOCIAL HISTORY: She is an active smoker. FAMILY HISTORY: Noncontributory. PHYSICAL EXAMINATION: VITAL SIGNS: Temperature 99.1, blood pressure 136/48. HEENT: Pupils are equal. NECK: Supple. LUNGS: Clear. CARDIOVASCULAR: Regular rhythm and rate. RESPIRATORY: Lungs clear to auscultation bilaterally. EXTREMITIES: Full range of motion. ABDOMEN: Incision healing well. NEUROLOGICAL: Oriented x3. PSYCHIATRIC: No gross depression. ASSESSMENT: Status post open appendectomy and partial colectomy. PLAN: Infectious disease. The patient has a white blood cell count . She has a fever at this time. We will order CT scan of abdomen and pelvis with p.o. contrast. In addition, we will discontinue her current antibiotic regimen and switch this to vancomycin and meropenem. Continue same GI plan. We will await results of CT scan of abdomen and pelvis. Tommie Waggoner MD /[id number]
[2020-06-25] MEDS: Meropenem 1 GM in Sodium Chloride 0.9% 100 ML IV SCH ×3 (03:41→20:11)
[2020-06-25] MEDS: Acetaminophen 325 MG Tab PO PRN ×2 (03:44→18:30)
[2020-06-25] MEDS: Vancomycin 1.6 GM in Sodium Chloride 0.9% 250 ML IV SCH (06:03)
[2020-06-25] MEDS ORDERED: Ondansetron 4 MG Tab.DIS PO PRN (07:19)
[2020-06-25] MEDS: HYDROmorphone 2 MG Tab PO PRN ×3 (07:53→20:10)
[2020-06-25] MEDS ORDERED: Promethazine 12.5 MG in Sodium Chloride 0.9% 50 ML IV PRN ×2 (08:17→09:00)
[2020-06-25] MEDS: Promethazine 25 MG Tab PO PRN ×3 (08:24→20:10)
[2020-06-25] MEDS: Docusate Sodium 100 MG Cap PO SCH ×2 (08:26→20:58)
[2020-06-25] MEDS: Lactobacillus Rhamnosus GG (Probiotic) Cap PO SCH ×2 (08:26→20:57)
[2020-06-25] MEDS: Bisacodyl 5 MG Tab PO SCH ×2 (08:26→20:58)
[2020-06-25] MEDS ORDERED: Polyethylene Glycol 3350 Powder 119 GM Bottle PO ONE (09:00)
[2020-06-25] MEDS ORDERED: Bisacodyl 10 MG Supp RECTAL SCH (09:00)
--- NOTE | 2020-06-25 09:21 | PN ---
DATE OF SERVICE: 06/25/2020 SUBJECTIVE: Abby is passing gas. She is on a regular diet. She is on vancomycin and meropenem for pneumonia. Oral intake 800. Urine output 1950. ROSI drain put out 55 mL of a pink serosanguineous drainage. She reports having quite a bit of pain, not taking the oxycodone because of nausea when she takes it. She also gets very nauseated from Vicodin or [place]. Currently, has Dilaudid tablets b.i.d. and Colace b.i.d. and has not had a bowel movement yet. REVIEW OF SYSTEMS: Remainder of review of systems negative for any pertinent positives and negatives. OBJECTIVE: GENERAL: Abby Lopez is a pleasant 64-year-old female, alert and orientated, sitting in chair. VITAL SIGNS: TPR is 99, 75, 18, blood pressure 156/53. HEENT: Negative. NECK: Supple. HEART: Regular rate and rhythm. LUNGS: Clear but rhonchi with coughing. She is producing some sputum. History of smoking. ABDOMEN: Aquacel dressings on. ROSI drain intact. Abdominal binder, the patient decline due to discomfort. EXTREMITIES: Without peripheral edema. ASSESSMENT: 1. Delayed primary closure for open abdominal incision on 05/27/2020. Surgeon: Tommie Waggoner MD. 2. Laparoscopy turned to laparotomy. POSTOPERATIVE DIAGNOSES: 1. Drainage of pericolonic abscess. 2. Open mass involving base of cecum, appendix, and abscess for perforated appendix with dense inflammatory mass involving abscess cavity of the appendix and cecum. 3. Date of surgery: 06/21/2020. Surgeon: Kvng Mack MD. PLAN: 1. Discontinue oxycodone. 2. Dilaudid 2 mg 1 to 2 every 4 hours p.r.n. pain. 3. Pretreat with Zofran 30 minutes before starting Dilaudid. 4. Dulcolax suppositories b.i.d. scheduled until the patient has bowel movement. 5. MiraLax 119 g p.o. 1 time. 6. Replace Aquacel dressing. 7. Continue use of incentive spirometer. 8. We will evaluate p.r.n. or in a.m. Abigail Jasso PA-C /[id number]
[2020-06-25] MEDS: Potassium Chloride 20 MEQ Tab.ER PO SCH ×3 (12:02→23:38)
[2020-06-25] MEDS ORDERED: Pantoprazole 40 MG Tab.CR PO SCH (16:00)
[2020-06-25] MEDS: Vancomycin 1.8 GM in Sodium Chloride 0.9% 250 ML IV SCH (17:19)
[2020-06-25] MEDS: Cyclobenzaprine 10 MG Tab PO PRN (23:18)
[2020-06-26] MEDS: HYDROmorphone 2 MG Tab PO PRN (01:45)
[2020-06-26] MEDS: Meropenem 1 GM in Sodium Chloride 0.9% 100 ML IV SCH (04:03)
[2020-06-26] MEDS: Acetaminophen 325 MG Tab PO PRN (04:14)
[2020-06-26] MEDS: Vancomycin 1.8 GM in Sodium Chloride 0.9% 250 ML IV SCH (05:47)
[2020-06-26] MEDS ORDERED: Furosemide 20 MG/2 ML VIAL IVPUSH ONE (07:30)
--- NOTE | 2020-06-26 07:59 | OR ---
DATE OF PROCEDURE: 06/24/2020 SURGEON: Tommie Waggoner MD PROCEDURE: Delayed primary closure. FINDINGS: Subcutaneous tissue and fascia healing well without evidence of infection or complication. COMPLICATIONS: None. BILINGUAL SECRETARY: None. ANESTHESIA: MAC/local. RISKS: Risks, benefits, alternatives, and limitations including, but not limited to infection, bleeding, and injury to abdominal structures were explained to the patient, and they wished to proceed. PREOPERATIVE DIAGNOSIS: Delayed primary closure due to concern for wound infection. POSTOPERATIVE DIAGNOSIS: Delayed primary closure due to concern for wound infection. PROCEDURE IN DETAIL: The patient was placed in supine position. The large incision along with the 2 smaller incisions were thoroughly irrigated with normal saline, approximately 1 L was used. They were inspected for abnormality, none was noted. The subcutaneous tissue was closed with three #1 Vicryl, and the skin was closed with sheela. The patient tolerated the procedure well. Tommie Waggoner MD /[id number]
--- NOTE | 2020-06-26 07:59 | OR ---
DATE OF PROCEDURE: 06/24/2020 SURGEON: Tommie Waggoner MD PROCEDURE: Transversus abdominis plane block, bilaterally. COMPLICATION: None. TURBINE MECHANIC: None. RISKS: Risks, benefits, alternatives, and limitations including, but not limited to infection, bleeding, and perforation were explained to the patient, and they wished to proceed. PROCEDURE IN DETAIL: The patient was placed in the supine position. The right transversus plane was identified first. Using ultrasound guidance via 13 megahertz probe, 80% of solution was injected in the right side. The left side was then addressed in same manner, same fashion, same technique and same sequence, using the same equipment. The patient tolerated the procedure well. Tommie Waggoner MD /[id number]
[2020-06-26] MEDS: Docusate Sodium 100 MG Cap PO SCH (08:46)
[2020-06-26] MEDS: Lactobacillus Rhamnosus GG (Probiotic) Cap PO SCH (08:46)
[2020-06-26] MEDS: Bisacodyl 5 MG Tab PO SCH (08:46)
[2020-06-26] MEDS: Potassium Chloride 20 MEQ Tab.ER PO SCH (08:48)
--- NOTE | 2020-06-26 11:36 | DISCH ---
ADMISSION DIAGNOSIS: Right lower quadrant abdominal pain. DISCHARGE DIAGNOSES: Laparoscopy turned to laparotomy. 1. Drainage of pericolonic abscess. 2. Open mass involving base of cecum, appendix and abscess. Date of procedure 06/21/2020. Surgeon: Kvng Mack MD. Abscess of perforated appendix with dense inflammatory mass involving abscess cavity of the appendix and cecum. 3. Delayed primary closure, 05/27/2020. Surgeon, Tommie Waggoner MD. HISTORY: Abby Lopez is a pleasant 64-year-old female, who presented to the emergency room with a 2-day history of worsening right lower quadrant abdominal pain. After preoperative evaluation, discussion of possible risks and possible complications, the patient wished to proceed with surgical procedure. HOSPITAL COURSE: Surgery was on 06/21/2020 with no complications. On postoperative day #1, IV was decreased. Mccullough catheter was discontinued. Antibiotics, Unasyn and Azactam were continued. Gram stain and culture did show gram-positive cocci and gram-negative rods. On 06/24/2020, pain was controlled. Her activity was good. She did run some temps. A CT scan of the abdomen was rechecked. Chest x-ray showed some bilateral opacities concerning for infiltrates. Antibiotics were discontinued, and she was changed to vancomycin and meropenem. On 06/24/2020, she had delayed primary closure and tolerated the procedure well. On 06/25/2020, oxycodone was discontinued, and she was not taking anything for pain and continued to be in quite a bit of pain. Oxycodone caused severe nausea. She was started on Dilaudid and given additional bowel stimulation, and she was able to have a bowel movement. Activity was good. Afebrile. Potassium was replaced the day before at 3.3, and today her potassium was 3.2. She has no complications and ready to be discharged to home. Lasix 20 mg IV will be given prior to discharge. PHYSICAL EXAMINATION: GENERAL: Abby Lopez is a pleasant 64-year-old female. VITAL SIGNS: Height is 5 feet 7 inches. Weight is 238 pounds. TPR at 0300 is 100.5, 87, 20. Blood pressure 154/68. HEENT: Negative. NECK: Supple. HEART: Regular rate and rhythm. LUNGS: Clear with rhonchi when coughing. ABDOMEN: Aquacel dressings on. She cannot tolerate the abdominal binder, so that is off. EXTREMITIES: Without peripheral edema. DISPOSITION: Discharged to home. CONDITION: Stable and improving. FOLLOWUP: Follow up with Abigail Jasso PA-C on 07/02/2020. To call for a time. HOME MEDICATIONS: 1. Culturelle 1 capsule oral twice daily #60. 2. Dilaudid 2 to 4 mg oral q.4 hours p.r.n. pain. 3. Flexeril 10 mg oral q.8 hours p.r.n. muscle spasms. 4. Potassium chloride 20 mEq oral 3 times a day, #42. 5. Phenergan 25 mg oral q.6h p.r.n. nausea, #40. 6. Septra DS 1 b.i.d., #10. 7. Tylenol, use as directed. DIET: Usual diet as tolerated. Drink 8 to 10 glasses of water a day. ACTIVITY: As tolerated. No lifting over 10 pounds for 4 weeks. Driving: Do not drive for 1 week and while on Dilaudid for pain management. Shower/bathing: May shower. DICHARGE INSTRUCTIONS: Notify provider if any fever, increased pain, swelling, redness, drainage, nausea, vomiting. Keep site clean and dry. Take off large Aquacel dressing on , 06/28/2020. Use incentive spirometer 10 times every hour while awake for 1 week.
--- NOTE | 2020-06-26 15:39 | OR ---
DATE OF PROCEDURE: 06/21/2020 SURGEON: Kvng Mack MD PREOPERATIVE DIAGNOSIS: Perforated appendicitis with a localized inflammatory response. POSTOPERATIVE DIAGNOSIS: Perforated appendicitis with a dense inflammatory mass including abscess cavity with adherence of the appendix and inflammatory mass to base of cecum. OPERATIVE PROCEDURE: Laparoscopy converted to laparotomy with: 1. Drainage of pericolonic abscess (01092). 2. Excision of mass including the base of cecum, appendix, and abscess cavity (72011). ANESTHESIA: General. VP PRODUCTION: Abigail Jasso PA-C INDICATION FOR PROCEDURE: A 64-year-old female presenting with a picture of acute appendicitis. This had been apparently ongoing by history for probably around 5 days. The patient has an obvious appendicitis on CT scan with significant inflammatory mass surrounding it, likely containing an abscess. Plan is to proceed with a laparoscopy, possible laparotomy, and appendectomy with other procedures as indicated that this might require more of an extensive resection such as cecectomy and/or right colectomy were gone over with the patient and her and they wished to proceed. DETAILS OF PROCEDURE: The patient was taken to the operating room and placed in a supine position. After general endotracheal anesthesia was induced, a Mccullough catheter was inserted, and the abdomen prepped and draped. Initially, a transverse incision was made 3 fingerbreadths superior and to the left of the umbilicus and peritoneal cavity entered under direct vision with an Optiview trocar. The peritoneal cavity was inflated to 15 mmHg pressure with CO2 and the laparoscope reinserted. No underlying trocar insertion site injuries were seen. Following this, a 12-mm trocar was placed in the left lower quadrant and right upper quadrant. The area of the appendicitis was identified. The origin of appendix off the cecum was actually fairly uninflamed, but this within around 2 cm entered an extremely dense inflammatory mass. Attempts at dissecting this over a period of roughly 20 to 30 minutes were unsuccessful and appeared this would need to be converted to an open procedure to safely manage the situation. Trocars were removed, the peritoneal cavity deflated, and a transverse right lower quadrant incision was made and carried through the full-thickness abdominal wall. The inflammatory mass was then identified. The peritoneum lateral and anterior to it and then inferior was divided. This allowed gradual mobilization of the mass upward. During the course of this, the abscess cavity was entered and this was drained, cultures were obtained and sent for Gram stain and C and S. Eventually, the complex of the inflammatory mass, the appendix, and cecum were all mobilized upward. There was no obvious plane between the inflammatory mass and inflamed appendix and the cecum, so a significant portion of the cecum was then excised which allowed closure of this area with a clean staple line. This was done with 2 firings of the MAURI purple load with care taken to avoid narrowing the ileocecal valve area. The mass consisting of much of the cecal base, appendix, and the abscess cavity was then delivered from the field. The retroperitoneum was then inspected at this point. There appeared to be no evidence of a ureteral injury and the abdomen was irrigated with a meropenem-containing saline solution. The cecal staple line was then reinforced with some fibrin sealant. A Silver-Villarreal drain was then placed through a stab wound superior to the main incision and taken across the cecectomy and abscess location and from there into the pelvis. The musculature and peritoneum were reapproximated with 3 layers of #1 Vicryl stitch. Transversus abdominis plane blocks had been placed x2, both on the right side in this case, one slightly above and one slightly below the incision, and the skin and subcutaneous tissue were felt to be high risk for a wound infection if they were closed and these were then packed open for a planned delayed primary closure in 48 hours. The drain was sutured to skin with some 3-0 Vicryl stitch and the patient taken to the recovery room in satisfactory condition. Physician baking assistant, Abigail Jasso played an essential role in assisting in this case, helping to position the patient, retract structures as needed, as well as suturing and cutting sutures when indicated. Her presence improved patient safety and decreased the operative time. Kvng Mack MD /[id number]
== END 2020-06-26 12:25 | disposition home or self-care (01) | DRG 329 ==
LOC: JP.ED 05:01 → JP.SDS 06:54 → JP.MS 10:20 → UNDOADMIN 10:20 → JP.MS 11:31 → UNDODISIN 06-26 12:25
PROVIDERS: ADMIT Surgery; ATTEND Surgery
PROC: 0DTJ0ZZ Resection of Appendix, Open Approach (ICD-10-PCS; principal; 2020-06-21)
PROC: 0DBH0ZZ Excision of Cecum, Open Approach (ICD-10-PCS; 2020-06-21)
PROC: 0WJG4ZZ Inspection of Peritoneal Cavity, Percutaneous Endoscopic Approach (ICD-10-PCS; 2020-06-21)
PROC: 0W9G0ZZ Drainage of Peritoneal Cavity, Open Approach (ICD-10-PCS; 2020-06-21)
PROC: 0WQF0ZZ Repair Abdominal Wall, Open Approach (ICD-10-PCS; 2020-06-24)
DX: K35.21 Acute appendicitis with generalized peritonitis, with abscess (principal); C18.1 Malignant neoplasm of appendix; K35.33 Acute appendicitis with perforation, localized peritonitis, and gangrene, with abscess; F17.210 Nicotine dependence, cigarettes, uncomplicated; Z20.828 Contact with and (suspected) exposure to other viral communicable diseases; Z53.31 Laparoscopic surgical procedure converted to open procedure; Z87.442 Personal history of urinary calculi; F17.200 Nicotine dependence, unspecified, uncomplicated; Z85.3 Personal history of malignant neoplasm of breast; Z90.13 Acquired absence of bilateral breasts and nipples; Z98.890 Other specified postprocedural states; Z88.1 Allergy status to other antibiotic agents; Z88.8 Allergy status to other drugs, medicaments and biological substances; Z79.899 Other long term (current) drug therapy
CPT/HCPCS: 36415; 44020; 44110; 74176; 80048; 85025; 87070; 87075; 87077; 87186; 87205; 93010; J0171; J0287; J0330; J1100 ×2; J1170 ×2; J2185; J2405; J2704; J2710; J2795; J3010 ×2; J3490 ×3; J7030; J7050 ×3; J7120; U0002; 51702; 71046; 74018; 74177; 80053; 80202; 81001; 83735; 84100; 85027; 87040; 88304; 88313; 88341; 88342; 94640; 94762; 96361; 96365; 96366; 96368; 96372; 96375; 96376; 99284; 99285-25; A9270-GY; C9113; J0295; J1940; J3370; J3410; J7040; J7121; J7620-GY; Q9967

== ENCOUNTER 2020-07-20 08:34 | Inpatient (IN) | payer MEDICARE, BC ==
[~2020-07-20 08:34] MED LIST: Dexamethasone 4 MG/ML SDV ONE; Glycopyrrolate 0.2 MG/ML 5 ML MDV ONE; Neostigmine Methylsulfate 1 MG/ML 5 ML Syringe ONE; Ondansetron 4 MG/2 ML SDV ONE; Propofol 200 MG/20 ML SDV ONE; Rocuronium 50 MG/5 ML Vial ONE; Succinylcholine 200 MG/10 ML MDV ONE; fentaNYL 250 MCG/5 ML SDV ONE
[2020-07-20] MEDS ORDERED: Meropenem 500 MG SDV ONE ×2 (08:50→11:58)
[2020-07-20] MEDS ORDERED: Dextrose 5%-Lactated Ringers 1,000 ML IV SCH (09:00)
[2020-07-20] MEDS ORDERED: Acetaminophen 500 MG Tab PO ONE (09:00)
[2020-07-20] MEDS: Scopolamine 1.5 MG Transdermal Patch TRDERM SCH (09:17)
[2020-07-20] MEDS ORDERED: fentaNYL 2,500 MCG in Sodium Chloride 0.9% 200 ML EPIDUR SCH (10:00)
[2020-07-20] MEDS ORDERED: Ketamine 50 MG in Sodium Chloride 0.9% 49.5 ML IV SCH (10:00)
[2020-07-20] MEDS ORDERED: Meropenem 500 MG in Sodium Chloride 0.9% 50 ML IV ONE (10:00)
[2020-07-20] MEDS ORDERED: Naloxone 0.4 MG/ML SDV IVPUSH PRN ×2 (10:00→13:22)
[2020-07-20] MEDS ORDERED: Ketamine 500 MG/5 ML MDV IV SCH (10:00)
[2020-07-20] MEDS ORDERED: Sodium Chloride 0.9% 10 ML ONE (11:20)
[2020-07-20] MEDS ORDERED: Labetalol 20 MG/4 ML Syringe ONE (11:46)
[2020-07-20] MEDS ORDERED: fentaNYL 250 MCG/5 ML SDV ONE (11:47)
[2020-07-20] MEDS ORDERED: Lactated Ringers 1,000 ML ONE (11:48)
[2020-07-20] MEDS ORDERED: fentaNYL 100 MCG/2 ML SDV IVPUSH ONE ×2 (13:07→13:30)
[2020-07-20] MEDS ORDERED: hydrOXYzine HCL 100 MG/2 ML SDV IM ONE (13:22)
[2020-07-20] MEDS ORDERED: Ondansetron 4 MG/2 ML SDV IVPUSH PRN ×2 (13:22→15:00)
[2020-07-20] MEDS ORDERED: diphenhydrAMINE 25 MG Cap PO PRN (13:22)
[2020-07-20] MEDS ORDERED: diphenhydrAMINE 50 MG/ML SDV IVPUSH PRN (13:22)
[2020-07-20] MEDS: HYDROmorphone/Normal Saline 15 MG/30 ML PCA IV PRN ×2 (13:38→22:46)
[2020-07-20] MEDS ORDERED: Naloxone 0.4 MG/ML SDV IV PRN (14:00)
[2020-07-20] MEDS: hydrOXYzine HCL 100 MG/2 ML SDV IM PRN (15:35)
[2020-07-20] MEDS: Meropenem 500 MG in Sodium Chloride 0.9% 50 ML IV SCH ×2 (16:18→22:49)
[2020-07-20] MEDS: Nystatin Susp 100,000 Unit/ML 5 ML UD Cup PO SCH ×2 (16:58→21:14)
[2020-07-20] MEDS: SCOPOLAMINE PATCH CHECK TOP SCH (16:59)
[2020-07-20] MEDS: Acetaminophen 500 MG Tab PO SCH ×2 (16:59→22:50)
[2020-07-20] MEDS: Cyclobenzaprine 10 MG Tab PO PRN (17:00)
[2020-07-20] MEDS: Dextrose 5%-Lactated Ringers 1,000 ML IV SCH ×2 (17:19→22:52)
[2020-07-20] MEDS: Pantoprazole 40 MG Vial IVPUSH SCH (17:19)
[2020-07-21] MEDS: Cyclobenzaprine 10 MG Tab PO PRN ×2 (03:01→10:35)
[2020-07-21] MEDS: Meropenem 500 MG in Sodium Chloride 0.9% 50 ML IV SCH ×4 (04:21→22:49)
[2020-07-21] MEDS ORDERED: Acetaminophen Soln 650 MG/20.3 ML UD Cup PO SCH (05:00)
[2020-07-21] MEDS: Dextrose 5%-Lactated Ringers 1,000 ML IV SCH ×3 (05:23→22:47)
[2020-07-21] MEDS: Nystatin Susp 100,000 Unit/ML 5 ML UD Cup PO SCH ×4 (05:25→21:48)
[2020-07-21] MEDS ORDERED: FLU Vacc QV2020-21(65YR UP)/PF 240 MCG/0.7 ML Syringe IM ONE (09:00)
[2020-07-21] MEDS: Ibuprofen 600 MG Tab PO SCH ×3 (10:23→21:50)
[2020-07-21] MEDS: Bisacodyl 5 MG Tab PO SCH ×2 (10:23→21:50)
[2020-07-21] MEDS: Acetaminophen Soln 650 MG/20.3 ML UD Cup PO SCH ×3 (10:25→22:48)
[2020-07-21] MEDS: SCOPOLAMINE PATCH CHECK TOP SCH (10:33)
[2020-07-21] MEDS: Pantoprazole 40 MG Vial IVPUSH SCH (15:44)
[2020-07-21] MEDS: HYDROmorphone/Normal Saline 15 MG/30 ML PCA IV PRN (15:44)
[2020-07-21] MEDS: Sennosides 8.6 MG Tab PO SCH (21:50)
[2020-07-21] MEDS: Metoclopramide 10 MG/2 ML SDV IVPUSH PRN (22:53)
[2020-07-21] MEDS ORDERED: Lactated Ringers 1,000 ML IV SCH (23:15)
[2020-07-22] MEDS: Ibuprofen 600 MG Tab PO SCH (02:49)
[2020-07-22] MEDS: Acetaminophen Soln 650 MG/20.3 ML UD Cup PO SCH (05:25)
[2020-07-22] MEDS: Meropenem 500 MG in Sodium Chloride 0.9% 50 ML IV SCH ×3 (05:25→16:17)
[2020-07-22] MEDS: Nystatin Susp 100,000 Unit/ML 5 ML UD Cup PO SCH ×4 (06:14→22:13)
[2020-07-22] MEDS ORDERED: Calcium Carbonate 500 MG Tab.Chew PO PRN (07:30)
[2020-07-22] MEDS ORDERED: Albuterol/Ipratropium 3.0-0.5 MG/3 ML Neb Soln ONE ×2 (07:41→20:22)
[2020-07-22] MEDS: Albuterol/Ipratropium 3.0-0.5 MG/3 ML Neb Soln NEB SCH ×3 (07:51→20:56)
[2020-07-22] MEDS ORDERED: Tamsulosin 0.4 MG Cap.ER PO ONE (08:49)
[2020-07-22] MEDS: Metoclopramide 10 MG/2 ML SDV IVPUSH PRN ×2 (08:53→14:50)
[2020-07-22] MEDS: Ibuprofen Susp 100 MG/5 ML 5 ML UD Cup PO SCH ×3 (10:13→22:13)
[2020-07-22] MEDS: Acetaminophen 160 MG Tab,Disintegrating PO SCH ×3 (10:16→22:13)
[2020-07-22] MEDS: SCOPOLAMINE PATCH CHECK TOP SCH (10:16)
[2020-07-22] MEDS: Bisacodyl 5 MG Tab PO SCH ×2 (10:34→22:12)
[2020-07-22] MEDS: Dextrose 5%-Lactated Ringers 1,000 ML IV SCH (12:21)
[2020-07-22] MEDS: Pantoprazole 40 MG Vial IVPUSH SCH (16:16)
[2020-07-22] MEDS ORDERED: Promethazine 25 MG/ML SDV ONE (17:11)
[2020-07-22] MEDS ORDERED: Sodium Chloride 0.9% 50 ML ONE (17:12)
[2020-07-22] MEDS: Promethazine 12.5 MG in Sodium Chloride 0.9% 50 ML IV PRN (17:17)
[2020-07-22] MEDS ORDERED: hydrOXYzine HCL 100 MG/2 ML SDV ONE (20:42)
[2020-07-22] MEDS: hydrOXYzine HCL 100 MG/2 ML SDV IM PRN (20:44)
[2020-07-22] MEDS ORDERED: Tamsulosin 0.4 MG Cap.ER PO SCH (21:00)
[2020-07-22] MEDS ORDERED: LORazepam 2 MG/ML SDV IVPUSH PRN (22:11)
[2020-07-22] MEDS ORDERED: fentaNYL 100 MCG/2 ML SDV IVPUSH PRN (22:11)
[2020-07-22] MEDS: Sennosides 8.6 MG Tab PO SCH (22:13)
[2020-07-22] MEDS ORDERED: LORazepam 2 MG/ML SDV ONE (22:59)
[2020-07-23] MEDS: Dextrose 5%-Lactated Ringers 1,000 ML IV SCH
[2020-07-23] MEDS ORDERED: Lidocaine 2% Viscous Solution 15 ML Cup PO ONE (00:29)
[2020-07-23] MEDS ORDERED: Lidocaine 2% Viscous Solution 15 ML Cup ONE (00:38)
[2020-07-23] MEDS ORDERED: Promethazine 25 MG/ML SDV ONE (01:17)
[2020-07-23] MEDS ORDERED: Sodium Chloride 0.9% 50 ML ONE (01:20)
[2020-07-23] MEDS: Promethazine 12.5 MG in Sodium Chloride 0.9% 50 ML IV PRN (01:26)
[2020-07-23] MEDS ORDERED: fentaNYL 100 MCG/2 ML SDV ONE ×2 (02:32→07:00)
[2020-07-23] MEDS: Albuterol/Ipratropium 3.0-0.5 MG/3 ML Neb Soln NEB SCH ×4 (02:35→19:46)
[2020-07-23] MEDS: Ibuprofen Susp 100 MG/5 ML 5 ML UD Cup PO SCH ×2 (03:40→09:45)
[2020-07-23] MEDS ORDERED: hydrOXYzine HCL 100 MG/2 ML SDV ONE (03:56)
[2020-07-23] MEDS: hydrOXYzine HCL 100 MG/2 ML SDV IM PRN (03:59)
[2020-07-23] MEDS: Acetaminophen 160 MG Tab,Disintegrating PO SCH ×2 (04:08→09:45)
--- NOTE | 2020-07-23 05:54 | CRLCR ---
Indication: Nausea and vomiting. Status post surgery. Technique: Abdomen 2 view Comparison: Abdomen 06/23/2020 Findings/Impression: Nasogastric tube with tip in the body of the stomach. Silver-Villarreal drain overlies the right lower quadrant. No dilated loops of large or small intestine. Mild degenerative disc disease lumbar spine. Dictated by Yosef Aguirre MD @ Jul 23 2020 5:48AM Signed by Dr. Yosef Aguirre @ Jul 23 2020 5:54AM
[2020-07-23] MEDS: Nystatin Susp 100,000 Unit/ML 5 ML UD Cup PO SCH ×2 (06:26→09:45)
[2020-07-23] MEDS ORDERED: Bupivacaine 0.5% 50 ML MDV ONE (06:49)
[2020-07-23] MEDS ORDERED: Meropenem 500 MG SDV ONE (06:49)
[2020-07-23] MEDS ORDERED: Lidocaine 1% with EPINEPHrine 1:100,000 50 ML MDV ONE (06:49)
[2020-07-23] MEDS ORDERED: Propofol 200 MG/20 ML SDV ONE ×2 (07:00→07:37)
[2020-07-23] MEDS ORDERED: Midazolam 1 MG/ML 2 ML SDV ONE (07:00)
--- NOTE | 2020-07-23 07:31 | PN ---
DATE OF SERVICE: 07/22/2020 SUBJECTIVE: Supriya is postoperative day 2. Vital signs have been stable. Oral intake 1540. Urine output 400 mL. Her Mccullough was discontinued and she was able to void 350 on 2 different occasions. She was bladder scanned at 200. She does not have the urge to void. She reports that she feels dehydrated. Her mouth feels dry. Has some burping and heartburn, but no acid reflux. Walking short distances in the room. Would like to have Tylenol changed to chewable and has refused ibuprofen because it is too big to swallow. They have tried to split it and crush it. Her pain is controlled with Dilaudid. She states it does make her dizzy for a couple of seconds after she pushes the button, but does help with the pain. REVIEW OF SYSTEMS: Remainder of review of systems negative for any pertinent positives and negatives. OBJECTIVE: GENERAL: Abby Lopez is a pleasant 64-year-old female. Alert and orientated. VITAL SIGNS: TPR at 0730; 98, 95, 16. Blood pressure 135/56. HEENT: Negative. NECK: Supple. HEART: Regular rate and rhythm. LUNGS: Clear. ABDOMEN: Dressings dry and intact. Abdominal binder is on. ROSI drain put out 80 mL of a light red drainage. EXTREMITIES: Reveal trace peripheral edema. SCDs are currently not on. ASSESSMENT: Exploratory laparotomy with lysis of adhesions: 1. Right colectomy. 2. Distal small bowel resection. POSTOPERATIVE DIAGNOSES: Appendiceal carcinoma, status post recent appendiceal resection, distal small bowel densely adherent to area of inflammation, right lower abdomen. Date of procedure 07/20/2020. Surgeon: Kvng Mack MD. PLAN: 1. Bladder scan was done and to put Mccullough back in. 2. DuoNeb q.6 hours. 3. SCDs to be on while in bed. 4. Change Tylenol and Motrin to chewable. 5. Tums every 2 hours p.r.n. heartburn. 6. N.p.o. after midnight for delayed primary closure. IV local sedation, TAP block, which consent to be signed. N.p.o. after midnight. May have Tylenol and Motrin with sips of water. 7. We will evaluate p.r.n. or in a.m. Abigail Jasso PA-C /[id number]
[2020-07-23] MEDS ORDERED: Lactated Ringers 1,000 ML ONE (07:37)
[2020-07-23] MEDS ORDERED: Neomycin/Polymyxin B 1 ML, Sodium Chloride 0.9% 500 ML IRR ONE ×2 (07:47)
[2020-07-23] MEDS ORDERED: fentaNYL/Normal Saline 600 MCG/30 ML PCA Vial IV PRN (08:00)
[2020-07-23] MEDS ORDERED: Naloxone 0.4 MG/ML SDV IV PRN (08:00)
--- NOTE | 2020-07-23 09:35 | PN ---
DATE OF SERVICE: 07/21/2020 SUBJECTIVE: Abby is postoperative day 1. She states most of her pain is muscle spasm. The epid[facility] taken [facility] She is using her CLINIC COORDINATOR. Vital signs have been stable. Oral intake 500. Urine output via Mccullough catheter is 1355. ROSI drain put out 95 mL of a light red drainage. REVIEW OF SYSTEMS: Remainder of review of systems negative for any pertinent positives or negatives. OBJECTIVE: GENERAL: Abby Lopez is a pleasant 64-year-old female. She is resting comfortably in bed. Alert and orientated. VITAL SIGNS: TPR is 98.9, 84, and 16; blood pressure 103/48. HEENT: Negative. NECK: Supple. HEART: Regular rate and rhythm. LUNGS: Clear. ABDOMEN: Dressings dry and intact. Abdominal binder is on. EXTREMITIES: Without peripheral edema. ASSESSMENT: Exploratory laparotomy with lysis of adhesions: 1. Right colectomy. 2. Distal small bowel resection. POSTOPERATIVE DIAGNOSIS: Appendiceal carcinoma, status post recent appendiceal resection, distal small bowel densely adherent to area of inflammation in the right lower abdomen. Date of procedure 07/20/2020. Surgeon: Kvng Mack MD. PLAN: 1. Decrease IV to 100 mL/hour. 2. Full liquid diet. 3. Senokot 2 tablets p.o. daily. 4. Dulcolax oral tablets 2 p.o. b.i.d. 5. Ibuprofen 600 mg every 6 hours scheduled, to take with milk or food. 6. Discontinue Mccullough catheter. 7. Schedule and have consent signed for delayed primary closure of open abdominal incision, local IV sedation with TAP block. The patient to be n.p.o. Thursday night, but continue with Tylenol or ibuprofen as scheduled while n.p.o. We will increase Flexeril to every 6 hours for muscle spasms and continue use of incentive spirometer. We will evaluate p.r.n. or in a.m. Abigail Jasso PA-C /[id number]
[2020-07-23] MEDS: Bisacodyl 5 MG Tab PO SCH (09:44)
[2020-07-23] MEDS ORDERED: FLU Vacc QV2020-21(65YR UP)/PF 240 MCG/0.7 ML Syringe IM ONE (10:00)
[2020-07-23] MEDS: Dextrose 5%-Lact Ringers w/KCl 1,000 ML IV SCH ×2 (11:20→21:17)
[2020-07-23] MEDS: Metoclopramide 10 MG/2 ML SDV IVPUSH SCH ×3 (11:21→21:18)
--- NOTE | 2020-07-23 12:10 | PN ---
DATE OF SERVICE: 07/23/2020 SUBJECTIVE: Abby had a total of 1450 emesis. I was notified at 2200 regarding emesis. An NG was placed, 700 mL from the NG. An abdominal flat and upright plate x-ray at 0400 showed the nasogastric tip in body of stomach and no dilated loops of small bowel. Supriya is n.p.o. for a delayed primary closure this morning. Temp max of 100.4. Oral intake 540, 1450 emesis. Urine output 2750. ROSI drain put out 70 mL of a light pink drainage. She had difficulty with nausea with the Dilaudid, so was changed to fentanyl IV and Dilaudid was discontinued. Labs this morning, hemoglobin 9.9, potassium 3.5. REVIEW OF SYSTEMS: Remainder of review of systems negative for any pertinent positives and negatives. OBJECTIVE: GENERAL: Supriya Lopez is a pleasant 64-year-old female. VITAL SIGNS: TPR at 0658; 100.8, 98, 18, blood pressure 158/67. HEENT: Negative. NG is in draining a dark brown red drainage. NECK: Supple. HEART: Regular rate and rhythm. LUNGS: Clear. ABDOMEN: Dressings dry and intact. Abdominal binder is on. EXTREMITIES: Without peripheral edema. ASSESSMENT: Exploratory laparotomy with lysis of adhesions: 1. Right colectomy. 2. Distal small bowel resection. POSTOP DIAGNOSES: 1. Appendiceal carcinoma. 2. Status post recent appendiceal resection. 3. Distal small bowel densely adherent to area of inflammation in right lower abdomen. 4. Date of procedure 07/20/2020. Surgeon: Kvng Mack MD. PLAN: 1. Orders to be written after delayed primary closure. 2. We will evaluate p.r.n. or in a.m. Abigail Jasso PA-C /[id number]
[2020-07-23] MEDS: SCOPOLAMINE PATCH CHECK TOP SCH (12:14)
[2020-07-23] MEDS: Pantoprazole 40 MG Vial IVPUSH SCH (16:16)
[2020-07-23] MEDS: Scopolamine 1.5 MG Transdermal Patch TRDERM SCH (16:16)
[2020-07-24] MEDS: Albuterol/Ipratropium 3.0-0.5 MG/3 ML Neb Soln NEB SCH ×4 (01:18→19:41)
[2020-07-24] MEDS: Metoclopramide 10 MG/2 ML SDV IVPUSH SCH ×3 (03:15→16:14)
--- NOTE | 2020-07-24 03:22 | CRLCR ---
Indication: Ileus Technique: Upright and supine views of the abdomen Comparison: Abdominal radiograph 04/22/2020 Findings: Distal end of gastric tube is again noted in the left upper quadrant, in the expected location of the gastric body. Right lower quadrant drain has been removed. Skin sheela overlie the midline abdomen. There are a few persistent prominent air-filled small bowel loops in the midabdomen measuring up to 3.6 cm. No bowel air-fluid levels are demonstrated on upright view. There is no free air under the diaphragm. Scattered fecal material is noted in the colon. The visualized osseous structures are unremarkable. The included lung bases are clear. Impression: A few persistent mildly dilated air-filled small bowel loops in the abdomen. Dictated by Arden Osorio MD @ Jul 24 2020 3:17AM Signed by Dr. Arden Osorio @ Jul 24 2020 3:20AM
[2020-07-24] MEDS: Dextrose 5%-Lact Ringers w/KCl 1,000 ML IV SCH (07:24)
[2020-07-24] MEDS ORDERED: Bisacodyl 10 MG Supp RECTAL PRN (07:38)
[2020-07-24] MEDS ORDERED: Bisacodyl 10 MG Supp RECTAL ONE (09:00)
[2020-07-24] MEDS: SCOPOLAMINE PATCH CHECK TOP SCH (09:02)
[2020-07-24] MEDS ORDERED: oxyCODONE 5 MG Tab PO PRN (10:39)
[2020-07-24] MEDS: Cyclobenzaprine 10 MG Tab PO PRN ×2 (16:14→22:12)
[2020-07-24] MEDS: Pantoprazole 40 MG Vial IVPUSH SCH (16:14)
[2020-07-24] MEDS ORDERED: Ondansetron 4 MG Tab.DIS PO PRN (17:41)
[2020-07-24] MEDS ORDERED: Metoclopramide 10 MG Tab PO PRN (17:41)
[2020-07-25] MEDS: Albuterol/Ipratropium 3.0-0.5 MG/3 ML Neb Soln NEB SCH ×2 (00:51→07:06)
--- NOTE | 2020-07-25 05:59 | CRLCR ---
Indication: Ileus, follow-up Technique: Upright and supine views of the abdomen Comparison: Upright and supine abdominal radiographs 07/24/2020 Findings/Impression: No residual abnormal distended air-filled small bowel loops are appreciated. There is scattered air in the colon. There is no pneumoperitoneum. Surgical sheela are again noted. Dictated by Arden Osorio MD @ Jul 25 2020 5:56AM Signed by Dr. Arden Osorio @ Jul 25 2020 5:58AM
[2020-07-25] MEDS ORDERED: FLU Vacc QV2020-21(65YR UP)/PF 240 MCG/0.7 ML Syringe IM ONE ×2 (09:00→10:00)
--- NOTE | 2020-07-25 09:09 | DISCH ---
ADMISSION DIAGNOSIS: Appendiceal carcinoma. DISCHARGE DIAGNOSES: 1. Exploratory laparotomy with lysis of adhesions. a. Right colectomy. b. Distal small-bowel resection. POSTOPERATIVE DIAGNOSES: 1. Appendiceal carcinoma. 2. Status post recent appendiceal resection. 3. Distal small bowel densely adherent to area of inflammation in the right lower abdomen. 4. Date of procedure: 07/20/2020. Surgeon: Kvng Mack MD. HISTORY: Abby Lopez had her appendix removed. 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 After preoperative evaluation and discussion of possible risks and possible complications, she wished to proceed with surgical procedure. HOSPITAL COURSE: Abby had her surgery on 07/20/2020. She had no operative complications. Her Mccullough was discontinued. She was started on a full liquid diet and given bowel stimulation. On postoperative day #2, she had some nausea, vomiting, and NG was placed, and she had a temp max of 100.4. Abdominal flat and upright x-ray looked good. She had a delayed primary closure on 07/23/2020. She had no complications. On 07/24/2020, she started having bowel movements, nausea discontinued, tolerated a full liquid diet, afebrile, up ambulating, pain was controlled with Tylenol, and she was able to be discharged to home without any complications. PHYSICAL EXAMINATION: GENERAL: Abby Lopez is a pleasant 64-year-old female. VITAL SIGNS: Height is 5 feet 6.14 inches, weight is 227 pounds. TPR is 98.8, 75, 16, blood pressure is 144/51. HEENT: Negative. NECK: Supple. HEART: Regular rate and rhythm. LUNGS: Clear. ABDOMEN: Aquacel dressings on. Abdominal binder is on. EXTREMITIES: Without peripheral edema. DISPOSITION: Discharged to home. CONDITION: Stable and improving. FOLLOWUP APPOINTMENT: With Abigail Jasso PA-C, on 07/31/2020 at 10:00 a.m. HOME MEDICATIONS: 1. Phenergan 25 mg p.o. q.6 hours p.r.n. nausea, #30. 2. Tylenol 1000 mg every 6 hours p.r.n. pain. 3. She is to resume her home medications. DIET: GI soft residue, low-fiber diet. Drink 8 to 10 glasses of water a day. ACTIVITY: No lifting greater than 10 pounds for 6 weeks. OTHER ACTIVITY: Walk 6 times daily inside your home. Driving: Do not drive for 1 week. DISCHARGE INSTRUCTIONS: Wound incision care: Keep operative site clean and dry. Wear abdominal binder for 4 weeks. Take Aquacel dressing off in 3 days on 07/28/2020. Notify provider if any fever, increased pain, nausea, or vomiting. Use incentive spirometer 10 times every hour while awake.
--- NOTE | 2020-07-25 19:35 | PN ---
DATE OF SERVICE: 07/24/2020 The patient has been afebrile with stable vital signs. Overall moving somewhat better. NG output has been around 700 mL, has been fairly clear as the only thing she has taken is a little bit of ice chips. She is passing some flatus. Abdominal x-ray shows no significant small bowel distention and felt quite a bit of air in the colon and rectum distal to the anastomosis. So at this point, we will try getting the NG tube out. We will add some Reglan at relatively low dose given the presence of the scopolamine patch. Otherwise maximize activity and work with pulmonary toilet. Kvng Mack MD /[id number]
--- NOTE | 2020-07-27 13:51 | OR ---
DATE OF PROCEDURE: 07/20/2020 SURGEON: Kvng Mack MD PREOPERATIVE DIAGNOSES: 1. Appendiceal carcinoma status post recent resection. POST OPERATIVE DIAGNOSES: 1. Appendiceal carcinoma status post recent resection. 2. Distal small bowel densely adherent to area of inflammation in the right lower abdomen and upper pelvis. OPERATIVE PROCEDURES: Exploratory laparotomy with lysis of adhesions and: 1. Right colectomy (11727). 2. Additional distal small bowel resection (38258). ANESTHESIA: General. ELECTRICAL LINESWORKER: Abigail Jasso PA-C INDICATIONS FOR PROCEDURE: This is a 64-year-old who recently presented with appendicitis which was converted to an open procedure as the cecum, distal small bowel, and the fatty tissue around the area of inflammation were all densely adherent and that resection was completed more or less en bloc without entering the actual area of appendicitis. On final pathology, this came back showing appendiceal carcinoma. At this point, the plan is to proceed with exploratory laparotomy and right colectomy to facilitate full staging of the appendiceal carcinoma and resect any metastatic nodes that might be present as well as provide additional superior margin from the primary tumor. Potential risks of the procedure including bleeding, infection, leaks from various GI tract closures as well as possible local or distant tumor recurrence, need for additional treatments such as chemotherapy were all reviewed, along with the remote possibility of cardiopulmonary, septic, or hemorrhagic complications leading to , and the patient wishes to proceed. DETAILS OF PROCEDURE: The patient was taken to the operating room. After general endotracheal anesthesia was induced, the Mccullough catheter was inserted, and the abdomen prepped and draped. Epidural catheter had also been placed and epidural infusion begun prior to the incision. An upper midline incision was made. This was carried somewhat inferior to the umbilicus and carried through the full-thickness abdominal wall. Upon entering the peritoneal cavity, the area of the cecum which had been partially resected earlier was initially identified. There was quite dense inflammation in this area. Initially then, the left lateral peritoneal reflection of the cecum and ascending colon were divided. This then allowed dissection behind the ascending colon with the cecectomy continued downward with care taken to avoid injury to the underlying ureter and the duodenum during the course of that dissection was eventually freed up and distal small bowel was then divided just proximal to the ileocecal valve. The transverse colon was then divided to the right of the middle colic vessels. After the remainder of the portion of the ascending colon and transverse colon were mobilized away from the retroperitoneal attachments, a portion of the omentum was then divided to facilitate a division of the transverse colon, all of this being done with MAURI sheela. With the cecum and ascending colon now well mobilized, the ileocolic nodes were excised along with the ileocolic vessels with the MAURI sheela, these being taken up flush with the take-off from the superior mesenteric artery as it descended in the mesentery. Remainder of the mesenteric attachments were then divided including the right colic vessels and the nodes and that specimen then delivered from the field. It was noted that some of the distal small bowel was then densely adherent to the area of inflammation of the right lower quadrant and pelvis. After dissection of this, some of this area was deserosalized and patient's distal small bowel was resected with MAURI sheela and sent as a separate specimen. The ileocolic anastomosis was then accomplished with a [id number] manner using 2 internal firings of the Endo-MAURI 60 mm sheela. The common opening was then closed transversely with MAURI sheela as well. The angles of anastomosis were reinforced with 3-0 Vicryl stitch as was the mesenteric defect and the abdomen was then irrigated with antibiotic- containing saline solution. Two Silver-Villarreal drains were then placed in the right midabdomen, 1 taken upward and 1 taken downward to drain the area which had quite a bit of edema present. The anastomosis was reinforced with fibrin sealant as well. The midline fascia was then approximated with a #2 Vicryl stitch. The subcutaneous tissue and skin were felt to be high risk for wound infection and were closed at this point and were packed open for a planned delayed primary closure on Thursday. The patient was taken to the recovery room in satisfactory condition. Physician assistant professor of surgery, Abigail Jasso, played an essential role in assisting in this case, helping to position the patient, retract structures as needed as well as suturing and cutting sutures when indicated. Her presence improved patient safety and decreased the operative time. Kvng Mack MD /[id number]
--- NOTE | 2020-07-27 15:31 | OR ---
DATE OF PROCEDURE: 07/23/2020 SURGEON: Kvng Mack MD PREOPERATIVE DIAGNOSIS: Open abdominal incision. POSTOPERATIVE DIAGNOSIS: Open abdominal incision. OPERATIVE PROCEDURE: Delayed primary closure of open abdominal incision. ANESTHESIA: IV sedation. INDICATION FOR PROCEDURE: A 64-year-old female presenting with a pathology report showing appendiceal carcinoma after previous appendectomy 72 hours ago. The patient underwent a right colectomy for further staging and treatment of the appendiceal carcinoma. At the time of the procedure, she was felt to be high risk for wound infection, and primary closure was undertaken. Given this, the wound was packed open for a planned delayed primary closure at this time. Potential risks of the procedure including bleeding and infection were reviewed, and the patient wishes to proceed. DETAILS OF PROCEDURE: The patient was taken to the operating room and placed in a semi- supine position with roughly 30 degrees to minimize aspiration risk. IV sedation was administered after which the abdominal dressing was taken down bluntly. We cleaned the area. The abdomen was then prepped and draped. Bilateral transversus abdominis plane blocks were placed using ultrasound guidance, and the incision was irrigated with meropenem- containing saline solution and anesthetized with 1% lidocaine mixed with Marcaine. The incision was closed with 2 layers of 3-0 and 4-0 Vicryl stitch deep and sheela for the skin. Dressing was applied. The patient was taken to the recovery room in satisfactory condition. Kvng Mack MD /[id number]
== END 2020-07-25 08:55 | disposition home or self-care (01) | DRG 331 ==
LOC: JP.SDSSCHI 08:34 → JP.SDS 08:34 → JP.MS 13:00 → EDSTATUS 13:45 → JP.MS 07-23 08:07
PROVIDERS: ADMIT Surgery; ATTEND Surgery
PROC: 0DTF0ZZ Resection of Right Large Intestine, Open Approach (ICD-10-PCS; principal; 2020-07-20)
PROC: 0DB80ZZ Excision of Small Intestine, Open Approach (ICD-10-PCS; 2020-07-20)
PROC: 0WQF0ZZ Repair Abdominal Wall, Open Approach (ICD-10-PCS; 2020-07-23)
PROC: 3E02340 Introduction of Influenza Vaccine into Muscle, Percutaneous Approach (ICD-10-PCS; 2020-07-25)
DX: C18.1 Malignant neoplasm of appendix (principal); Z23 Encounter for immunization; Z88.0 Allergy status to penicillin; Z88.1 Allergy status to other antibiotic agents
CPT/HCPCS: 36415; 74019; 80053; 85025; 88307; 88309; 90662; 94640; 94762; A9270-GY; C9113; G0008; J0171; J0330; J1100; J1170; J2060; J2185; J2250; J2405; J2550; J2704; J2710; J2765; J2795; J3010; J3410; J3480; J3490; J7050; J7120; J7121; J7620-GY

== ENCOUNTER 2020-08-15 04:42 | Emergency (ER) | payer MEDICARE, BC ==
[2020-08-15] MEDS ORDERED: Ketorolac 60 MG/2 ML SDV IM ONE (05:09)
--- NOTE | 2020-08-15 05:13 | EDM.PDOC ---
ED HPI GENERAL MEDICAL PROBLEM - General Chief Complaint: Flank Pain Stated Complaint: KIDNEY STONE? Time Seen by Provider: 08/15/20 05:00 Source of Information: Reports: Patient, Family, Old Records, RN Notes Reviewed History Limitations: Reports: No Limitations - History of Present Illness INITIAL COMMENTS - FREE TEXT/NARRATIVE: 64-year-old female presents emergency department with a complaint of left flank pain, she states the pain has been ongoing for 3days, was evaluated in clinic this morning thought to be muscle strain, she does have a history of nephrolit hiasis recent CT scan back early part of June revealed small nonobstructing stones in left kidney recently underwent surgery for appendiceal carcinoma, Left Flank Pain Score (Numeric/FACES): 7 - Related Data Allergies Allergy/AdvReac Type Severity Reaction Status Date / Time cefuroxime [From Ceftin] Allergy Hives Verified 08/15/20 04:51 amoxicillin [From Augmentin] AdvReac Vomiting Verified 08/15/20 04:51 clavulanic acid AdvReac Vomiting Verified 08/15/20 04:51 [From Augmentin] levofloxacin [From Levaquin] AdvReac Muscle Verified 08/15/20 04:51 Aches prednisone AdvReac Headache Verified 08/15/20 04:51 Home Meds: Home Meds Acetaminophen [Tylenol] 650 mg PO Q4H PRN tablet 06/26/20 [Rx] Cyclobenzaprine [Flexeril] 10 mg PO Q8H PRN #30 tablet 06/26/20 [Rx] Ketorolac [Toradol] 10 mg PO TID PRN #20 tab 08/15/20 [Rx] Tamsulosin HCl [Flomax] 0.4 mg PO DAILY #20 cap.er.24h 08/15/20 [Rx] Past Medical History HEENT History: Reports: Allergic Rhinitis, Impaired Vision Respiratory History: Reports: Pneumonia, Recurrent Genitourinary History: Reports: Renal Calculus [employer] TECHNICIAN History: Reports: Musculoskeletal History: Reports: Fracture Endocrine/Metabolic History: Reports: Obesity/BMI 30+ Oncologic (Cancer) History: Reports: Breast, Other (See Below) Other Oncologic History: appendix - Infectious Disease History Infectious Disease History: Reports: Chicken Pox, Measles, Mumps - Past Surgical History HEENT Surgical History: Reports: None Respiratory Surgical History: Reports: None GI Surgical History: Reports: Appendectomy Female Surgical History: Reports: Breast Reconstruction, Mastectomy Endocrine Surgical History: Reports: None Musculoskeletal Surgical History: Reports: Other (See Below) Other Musculoskeletal Surgeries/Procedures:: bilateral ankle surgery Oncologic Surgical History: Reports: Mastectomy, Other (See Below) Other Oncologic Surgeries/Procedures: bilateral mastectomy with reconstruction. Social & Family History - Tobacco Use Tobacco Use Status *Q: Never Tobacco User - Caffeine Use Caffeine Use: Reports: Soda Caffeine Use Comment: occasional soda - Recreational Drug Use Recreational Drug Use: No ED ROS GENERAL - Review of Systems Review Of Systems: See Below Constitutional: Denies: Fever, Chills HEENT: Reports: No Symptoms Respiratory: Reports: No Symptoms Cardiovascular: Reports: No Symptoms GI/Abdominal: Reports: Abdominal Pain, Nausea. Denies: Vomiting : Reports: Flank Pain ED EXAM, GI/ABD - Physical Exam Exam: See Below Exam Limited By: No Limitations General Appearance: Alert, WD/WN, Mild Distress Respiratory/Chest: No Respiratory Distress GI/Abdominal Exam: Soft, Non-Tender, Other (Surgical wounds clean dry and intact) Course - Vital Signs Last Recorded V/S: Last Vital Signs Temp 97.6 F 08/15/20 04:57 Pulse 77 08/15/20 05:56 Resp 16 08/15/20 04:57 BP 145/76 H 08/15/20 05:56 Pulse Ox 97 08/15/20 04:57 - Orders/Labs/Meds Labs: Laboratory Tests 08/15/20 Range/Units 05:11 Urine Color Red A (YELLOW) Urine Appearance Clear (CLEAR) Urine pH 5.5 (5.0-8.0) Ur Specific [place] 1.015 (1.008-1.030) Urine Protein Negative (NEGATIVE) mg/dL Urine Glucose (UA) Negative (NEGATIVE) mg/dL Urine Ketones Negative (NEGATIVE) mg/dL Urine Occult Blood Large H (NEGATIVE) Urine Nitrite Negative (NEGATIVE) Urine Bilirubin Negative (NEGATIVE) Urine Urobilinogen 0.2 (0.2-1.0) EU/dL Ur Leukocyte Esterase Negative (NEGATIVE) Urine RBC Semi-packed H (0-5) Urine WBC 0-5 (0-5) Ur Epithelial Cells Many Amorphous Sediment Not seen Urine Bacteria Not seen Urine Mucus Not seen Meds: Medications Discontinued Medications Generic Name Dose Route Start Last Admin Trade Name Freq PRN Reason Stop Dose Admin Ketorolac Tromethamine 60 mg 08/15/20 05:09 08/15/20 05:15 Toradol IM 08/15/20 05:10 60 mg ONETIME ONE Administration Promethazine HCl 12.5 mg 08/15/20 05:46 08/15/20 05:52 Phenergan IM 08/15/20 05:47 12.5 mg ONETIME ONE Administration Departure - Departure Time of Disposition: 06:26 Disposition: Home, Self-Care 01 Condition: Fair Clinical Impression: Nephrolithiasis - Discharge Information Prescriptions: Tamsulosin HCl [Flomax] 0.4 mg PO DAILY #20 cap.er.24h Ketorolac [Toradol] 10 mg PO TID PRN #20 tab PRN Reason: Pain Instructions: Kidney Stones, [id number] Referrals: PCP,None [Primary Care Provider] - Forms: ED Department Discharge Additional Instructions: Use Toradol as needed for pain control, take the Flomax daily for help with passing the stones please followup with your primary care provider in 3-5 days if not better, please call return to the emergency department with worsening of symptoms. Sepsis Event Note (ED) - Evaluation Sepsis Screening Result: No Definite Risk - Focused Exam Vital Signs: Vital Signs Temp Pulse Resp BP Pulse Ox 08/15/20 05:56 77 145/76 H 08/15/20 04:57 97.6 F 98 16 170/93 H 97 - Assessment/Plan Plan: Assessment Acuity = acute Site and laterality = left-sided 6 mm nephrolithiasis Etiology = unknown Manifestations = flank pain Location of injury = Home Lab values = CT scan describes stone above urinalysis reveals packed RBCs consistent with hematuria Plan Good relief with Toradol prescription written for Toradol 10 mg p.o. 3 times daily as needed total #20 as well as Flomax 0.4 mg 1 tablet daily total #20 medications faxed to [facility] follow-up primary care 3 to 5 days if no improvement This note was dictated using [employer] voice recognition software please call with any questions on syntax or grammar.
[2020-08-15] MEDS ORDERED: Promethazine 25 MG/ML SDV IM ONE (05:46)
--- NOTE | 2020-08-15 06:14 | CRLCT ---
INDICATION: Left flank pain COMPARISON: June 23, 2020 TECHNIQUE: CT examination of the abdomen and pelvis was performed without intravenous contrast. Thin section axial images were obtained from the lung bases through the pubic symphysis. Oral contrast was not administered. Please note that all CT scans at this facility use dose modulation, iterative reconstruction, and/or weight-based dosing when appropriate to reduce radiation dose to as low as reasonably achievable. FINDINGS: LUNG BASES: Reticular opacities at the lung bases likely related to pulmonary interstitial fibrosis. And this is not a known process, it should probably be formally studied and evaluated in the nonacute care setting. Heart size normal. The lung bases. Atherosclerotic vascular calcifications. Breast implants. LIVER/BILIARY SYSTEM:The liver is normal in size and configuration given the lack of intravenous contrast. There is no visible focal mass and there is no intra- or extra hepatic biliary ductal dilatation.The gall bladder appears normal. ADRENALS: Normal non-contrast appearance KIDNEYS, URETERS and BLADDER:Intrarenal calculi bilaterally in the 1-4 millimeter range. Left hydronephrosis and left hydroureter due to a 6 millimeter calculus at the left ureterovesical junction. The bladder is decompressed and poorly evaluated but there are no calculi within the bladder. SPLEEN:Normal non-contrast appearance. PANCREAS: Normal non-contrast appearance. RETROPERITONEUM and MESENTERY: There is no mass, adenopathy or aortic aneurysm. Atherosclerotic vascular calcification GASTROINTESTINAL SYSTEM: Postoperative changes involving the mesentery and small bowel and anterior abdominal wall. There is a focal prominent loop of small bowel in the left flank though this does not appear to be obstructed. This of doubtful significance. There is diverticulosis. PELVIS: No mass, adenopathy or free fluid. OSSEOUS STRUCTURES and ABDOMINAL WALL: There is an age-appropriate appearance of the osseous structures.Postsurgical changes in the anterior abdominal wall. OTHER: No free fluid or free air. IMPRESSION: 1. Left-sided obstructive uropathy due to a 6 millimeter calculus at the left ureterovesical junction. There are intrarenal calculi bilaterally in the 1-4 millimeter range. 2. Basilar lung findings suggestive pulmonary interstitial fibrosis. If this is not known, follow-up is recommended at a clinically appropriate time. 3. Postoperative changes involving the anterior abdominal wall and bowel. No unexpected findings in this regard when compared to June 23, [address] Please note that all CT scans at this facility use dose modulation, iterative reconstruction, and/or weight-based dosing when appropriate to reduce radiation dose to as low as reasonably achievable. Dictated by Kvng De Leon MD @ Aug 15 2020 6:03AM Signed by Dr. Kvng De Leon @ Aug 15 2020 6:11AM
== END 2020-08-15 06:32 | disposition home or self-care (01) ==
LOC: JP.ED 04:42
DX: N13.2 Hydronephrosis with renal and ureteral calculous obstruction (principal); E66.9 Obesity, unspecified; Z68.35 Body mass index [BMI] 35.0-35.9, adult; Z88.1 Allergy status to other antibiotic agents; Z88.8 Allergy status to other drugs, medicaments and biological substances
CPT/HCPCS: 74176; 81001; 96372; 99284; J1885; J2550

== ENCOUNTER 2021-06-13 08:30 | Day surgery (SDC) | payer MEDICARE, BC ==
[~2021-06-13 08:30] MED LIST changes: +Bupivacaine 0.5% 50 ML MDV ONE; +Lidocaine 1% with EPINEPHrine 1:100,000 50 ML MDV ONE
[2021-06-13] MEDS ORDERED: Sodium Chloride 0.9% 1,000 ML IV SCH (09:00)
[2021-06-13] MEDS ORDERED: metroNIDAZOLE/Normal Saline 500 MG in Premix Bag 1 BAG IV ONE (09:30)
[2021-06-13] MEDS ORDERED: fentaNYL 250 MCG/5 ML SDV ONE (10:04)
[2021-06-13] MEDS ORDERED: Polyethylene Glycol 3350 Powder 17 GM Packet PO PRN (11:17)
[2021-06-13] MEDS ORDERED: hydrOXYzine HCL 100 MG/2 ML SDV IM PRN (11:17)
[2021-06-13] MEDS ORDERED: Acetaminophen/oxyCODONE 325-5 MG Tab PO PRN (11:17)
[2021-06-13] MEDS ORDERED: Benzocaine/Cetylpyridinium/Menthol Lozenge MUCMEM PRN (11:17)
[2021-06-13] MEDS ORDERED: diphenhydrAMINE 50 MG/ML SDV IVPUSH PRN (11:17)
--- NOTE | 2021-06-13 13:55 | OR ---
DATE OF PROCEDURE: 06/13/2021 SURGEON: Tommie Waggoner MD PROCEDURES: 1. Transversus abdominis plane block bilaterally. 2. Bilateral rectus sheath blocks. COMPLICATION: None. EXPLOSIVE ORDNANCE DISPOSAL TECHNICIAN: None. RISKS: Risks, benefits, alternatives, and limitations including, but not limited to infection, bleeding, injury to bowel structures were explained to the patient and she wished to proceed. PROCEDURE IN DETAIL: The patient was placed in supine position. The right transversus plane was identified using a 13 megahertz ultrasound probe. 20% of the solution was injected under direct visualization. This was then repeated on the other side. Bilateral rectus sheaths were also injected under direct visualization. At no point was the needle advanced blindly. At no point was the needle passed the peritoneum. 20% in each of the 4 locations were injected respectively. The patient tolerated the procedure well. Tmomie Waggoner MD /[id number]
--- NOTE | 2021-06-13 14:02 | OR ---
DATE OF PROCEDURE: 06/13/2021 SURGEON: Tommie Waggoner MD PROCEDURE: Open ventral hernia repair. FINDINGS: 4.5 cm ventral hernia, right lower quadrant, incarcerated, non strangulated. COMPLICATION: None. CUPOLA CHARGER INSULATION: None. ANESTHETIC: General. RISKS: Risks, benefits, alternatives, and limitations including infection, bleeding, perforation, injury to abdominal structures such as bowel, bladder, blood vessels. Also discussed chronic wounds, chronic pain, the use of mesh, alternatives to this procedure, and other risks not listed here were explained to the patient and wished to proceed. PROCEDURE IN DETAIL: The patient was placed in supine position. The previous incision was opened up approximately 4 cm in size. This was enlarged slightly intraoperatively. This was carried down with electrocautery to the sac which was identified. Small bowel was noted to be incarcerated within this. This was unable to be reduced. The sac was opened and the edges of the defect were noted and palpated to be approximately 4 to 5 cm. Using a measuring device, the mesh would be cut approximately 12 cm circular. This was sutured into place by placing stitches in all 4 quadrants, passing them through the fascia, using a ribbon to protect the bowel, sutured them into place and subsequently additional sutures approximately every 5 mm to 1 cm with tacking device. The fascia was then closed over this. Subcutaneous tissues were closed with 3-0 Vicryl interrupted sutures and the skin was closed with 4-0 Vicryl. The patient tolerated the procedure well. Tommie Waggoner MD /[id number]
== END 2021-06-13 15:29 | disposition home or self-care (01) ==
LOC: JP.SDS 08:30
PROVIDERS: ATTEND Surgery
DX: K43.6 Other and unspecified ventral hernia with obstruction, without gangrene (principal); Z88.1 Allergy status to other antibiotic agents; Z88.8 Allergy status to other drugs, medicaments and biological substances
CPT/HCPCS: 49561; A9270; C1713; C1781; J0171; J0330; J1100; J2405; J2704; J2710; J2795; J3010; J3410; J3490; J7030

== ENCOUNTER 2023-01-25 07:42 | Emergency (ER) | payer MEDICARE, BC ==
[2023-01-25 08:52] LABS: ESTIMATED GFR 70 mL/min (>60)
[2023-01-27 12:09] LABS: HBSAG SCREEN Negative (Negative); HCV AB Non Reactive (Non Reactive); HEP A AB, IGM Negative (Negative); HEP B CORE AB, IGM Negative (Negative)
== END 2023-01-25 10:26 | disposition home or self-care (01) ==
LOC: JP.ED 07:42
DX: L95.9 Vasculitis limited to the skin, unspecified (principal); D69.2 Other nonthrombocytopenic purpura; E66.9 Obesity, unspecified; Z88.1 Allergy status to other antibiotic agents; Z88.5 Allergy status to narcotic agent; Z88.0 Allergy status to penicillin; Z88.8 Allergy status to other drugs, medicaments and biological substances; Z68.35 Body mass index [BMI] 35.0-35.9, adult
CPT/HCPCS: 36415; 80053; 80074; 81001; 83520; 85025; 85379; 85610; 85651; 85730; 86140; 86256; 86431; 99283

== ENCOUNTER 2023-02-01 11:40 | Emergency (ER) | payer MEDICARE, BC ==
[2023-02-01] MEDS ORDERED: Sodium Chloride 0.9% 10 ML Syringe FLUSH PRN (12:34)
[2023-02-01] MEDS ORDERED: Sodium Chloride 0.9% 10 ML Syringe FLUSH ONE (12:59)
[2023-02-01] MEDS ORDERED: Sodium Chloride 0.9% 50 ML IV ONE (12:59)
[2023-02-01] MEDS ORDERED: Iopamidol 612 MG/ML 100 ML Bottle IV SCH (13:00)
[2023-02-01 13:09] LABS: ESTIMATED GFR 70 mL/min (>60)
== END 2023-02-01 14:59 | disposition home or self-care (01) ==
LOC: JP.ED 11:40
DX: K57.90 Diverticulosis of intestine, part unspecified, without perforation or abscess without bleeding (principal); K52.9 Noninfective gastroenteritis and colitis, unspecified; E66.9 Obesity, unspecified; Z88.0 Allergy status to penicillin; Z88.1 Allergy status to other antibiotic agents; Z88.8 Allergy status to other drugs, medicaments and biological substances; Z88.5 Allergy status to narcotic agent
CPT/HCPCS: 36415; 74177; 80053; 81001; 85025; 86140; 99283; 99284; J3490; Q9967

== ENCOUNTER 2025-06-29 07:27 | Day surgery (SDC) | payer MEDICARE, BC ==
[2025-06-29] MEDS: Sodium Chloride 0.9% 10 ML Syringe FLUSH PRN (08:13)
[2025-06-29] MEDS ORDERED: Midazolam 1 MG/ML 2 ML SDV ONE (08:31)
== END 2025-06-29 08:57 | disposition home or self-care (01) ==
LOC: JP.SDS 07:27
PROVIDERS: ATTEND Ophthalmology
DX: E11.36 Type 2 diabetes mellitus with diabetic cataract (principal); H25.11 Age-related nuclear cataract, right eye; Z88.1 Allergy status to other antibiotic agents; Z88.8 Allergy status to other drugs, medicaments and biological substances; Z79.899 Other long term (current) drug therapy
CPT/HCPCS: 66984; J2250; V2632

== ENCOUNTER 2025-07-27 06:20 | Day surgery (SDC) | payer MEDICARE, BC ==
[2025-07-27] MEDS ORDERED: Midazolam 1 MG/ML 2 ML SDV ONE (07:10)
[2025-07-27] MEDS: Sodium Chloride 0.9% 10 ML Syringe FLUSH PRN (07:11)
== END 2025-07-27 08:15 | disposition home or self-care (01) ==
LOC: JP.SDS 06:20
PROVIDERS: ATTEND Ophthalmology
DX: E11.36 Type 2 diabetes mellitus with diabetic cataract (principal); H25.12 Age-related nuclear cataract, left eye; Z88.1 Allergy status to other antibiotic agents; Z88.8 Allergy status to other drugs, medicaments and biological substances; Z87.891 Personal history of nicotine dependence; Z79.899 Other long term (current) drug therapy
CPT/HCPCS: 66984; J2250; V2632; 00142-QZ